=== PATIENT | male | born 1965 | race American Indian/Alaskan Native ===

== ENCOUNTER 2018-06-04 11:38 | Inpatient (IN) | payer MEDICARE ==
--- NOTE | 2018-06-04 12:23 | Emergency Department Report ---
HPI - General Time Seen by Provider: 06/04/18 12:11 - HPI HPI: 53-year-old -[place] male presents to the emergency department from [facility] for altered mental status. Patient was brought to the psychiatric facility after he contact his roommate and was beating his head on a wall. He has a past medical history listed as hypertension, diabetes, hyperlipidemia and he has some level of intellectual disability. He has a psychiatric history listed as depression, psychosis, schizoaffective disorder. Patient apparently went to the psychiatric facility from [facility] after he had gone a few days without sleep, was aggressive towards people at his facility and was hitting his head on the wall. In his inpatient evaluation at [facility], he is listed as mute, uncooperative and poorly groomed and does not follow all commands. It appears that the patient was sent in to [facility] for evaluation because he has not been eating or drinking over the past few days and is "altered." Patient is currently making sounds but nothing appears organized or is any type of identifiable language. ED Past Medical Hx - Medications Home Medications: Home Medications Medication Instructions Recorded Confirmed Last Taken Type Aspirin EC [Aspirin Enteric Coated 81 mg PO DAILY 06/04/18 06/04/18 Unknown History TAB] Ciprofloxacin HCl [Cipro] 500 mg PO BID 06/04/18 06/04/18 Unknown History Docusate Sodium [Stool Softener] 100 mg PO BID 06/04/18 06/04/18 Unknown History Fenofibrate 160 mg PO QPM 06/04/18 06/04/18 Unknown History Glimepiride [Amaryl] 10 mg PO DAILY 06/04/18 06/04/18 Unknown History Lisinopril [Zestril] 40 mg PO DAILY 06/04/18 06/04/18 Unknown History Potassium Chloride [Klor-Con] 20 meq PO DAILY 06/04/18 06/04/18 Unknown History Sertraline [Zoloft] 150 mg PO QAM 06/04/18 06/04/18 Unknown History Valproic Acid (As Sodium Salt) 500 mg PO BID 06/04/18 06/04/18 Unknown History [Depakene] amLODIPine [Norvasc] 10 mg PO DAILY 06/04/18 06/04/18 Unknown History chlorproMAZINE [Thorazine] 25 mg PO BID 06/04/18 06/04/18 Unknown History hydroCHLOROthiazide [HCTZ] 25 mg PO DAILY 06/04/18 06/04/18 Unknown History metFORMIN [Glucophage] 500 mg PO BID 06/04/18 06/04/18 Unknown History ED Review of Systems ROS: Stated complaint: EVALUATION Other details as noted in HPI Comment: Unobtainable due to pts medical conditions Physical Exam - Physical Exam Physical Exam: GENERAL: Patient is awake but confused. HENT: Normocephalic. Atraumatic. Patient has moist mucous membranes. EYES: Extraocular motions are intact. Pupils equal reactive to light bilaterally. NECK: Supple. Trachea is midline. CHEST/LUNGS: Clear to auscultation. There is no respiratory distress noted. HEART/CARDIOVASCULAR: Regular. There is no tachycardia. There is no murmur. ABDOMEN: Abdomen is soft, nontender. Patient has normal bowel sounds. There is no abdominal distention. SKIN: Skin is warm and dry. NEURO: The patient is awake. Patient follows a few commands but often is not redirectable. No obvious facial asymmetry. Patient is making sounds but they are unintelligible and unorganized. MUSCULOSKELETAL: There is no tenderness or deformity. There is no evidence of acute injury. ED Medical Decision Making - Lab Data Result diagrams: 06/04/18 12:28 06/04/18 12:28 - EKG Data -: EKG Interpreted by Ma EKG shows normal: sinus rhythm, axis, intervals, QRS complexes, ST-T waves Rate: tachycardia (105 bpm) - EKG Data When compared to previous EKG there are: previous EKG unavailable Interpretation: normal EKG (with mild tachycardia) - Radiology Data Radiology results: report reviewed EXAM: CT HEAD/BRAIN WO CON HISTORY: Altered Mental Status TECHNIQUE: CT of the head was performed without intravenous contrast. PRIORS: None. FINDINGS: The ventricles are normal in shape and position. The ventricles are nondilated. No intracranial hemorrhage, mass, mass effect, midline shift or evidence of acute ischemic infarct. The basilar cisterns are patent. The paranasal sinuses are clear. The extracranial soft tissues demonstrate no abnormality. The calvarium is intact. The orbits are intact. The mastoid air cells are clear. IMPRESSION: No acute intracranial abnormality. Transcribed By: MG Dictated By: RIGOBERTO GARCIA MD Electronically Authenticated By: RIGOBERTO GARCIA MD Signed Date/Time: 06/04/18 1742 - Medical Decision Making Patient presents from his psychiatric facility with a concern for altered mental status. Looking at the intake forms, it appears that the patient presented to them mute with some questionable weakness. However the facility nurse, who is with the patient, says that she has seen him ambulatory and sometimes responsive saying normal Iranian words. Since the patient has been in the emergency department, he is making sounds but they are unintelligible and disorganized. The patient will follow a few commands. It is unknown what is a normal mentation for this patient and when the last known well time is. CT of the head does not show any bleed, shift, mass, ischemia or any acute process. Labs show a mild leukocytosis. Mild hypernatremia but otherwise no significant electrolyte abnormalities, renal insufficiency, or glucose abnormalities. EKG did not any signs of ST elevation MO. It is possible that the patient's current condition is secondary to psychosis, but given this recent change in this patient, I cannot clear him for return to the psychiatric facility. He will be admitted medically for further evaluation and was accepted for admission by the hospitalist, Dr. Howell. - Differential Diagnosis CVA, substance abuse, psychosis Critical Care Time: No Critical care attestation.: If time is entered above; I have spent that time in minutes in the direct care of this critically ill patient, excluding procedure time. ED Disposition Clinical Impression: Hypernatremia Altered mental status Qualifiers: Altered mental status type: unspecified Qualified Code(s): R41.82 - Altered mental status, unspecified Hypertension Qualifiers: Hypertension type: essential hypertension Qualified Code(s): I10 - Essential ( primary) hypertension Disposition: -09 OP ADMIT IP TO THIS HOSP Is pt being admited?: Yes Condition: Fair Time of Disposition: 18:58 - Assessment Assessment Interval: Baseline (There is no obvious last known well time. Some of the patient's symptoms appear to wax and wane. He does not appear to be a TPA candidate. Difficult to do full NIHSS as patient has history of intellectual disability and psychosis and does not follow all commands.) - Level of Consciousness 1a. Level of Consciousness: alert/keenly responsive - LOC Questions 1b. LOC Questions: answers no questions correctly - LOC Command 1c. LOC Commands: performs 1 task correctly - Best Gaze 2. Best Gaze: normal - Visual 3. Visual: no visual loss - Facial Palsy 4. Facial Palsy: normal symmetrical movement - Motor Arm 5b. Motor Arm Right: no drift 5a. Motor Arm Left: no drift - Motor Leg 6a. Motor Leg Left: no drift 6b. Motor Leg Right: no drift - Limb Ataxia 7. Limb Ataxia: absent - Sensory 8. Sensory: normal - Best Language 9. Best Language: mild/moderate aphasia - Dysarthria 10. Dysarthria: severe dysarthria - Extinction and Inattention 11. Extinction/Inattention: no abnormality - Scoring Total Score: 6 Stroke Severity: Moderate Stroke
[2018-06-04] MEDS ORDERED: GEODON IM ONE (12:28)
[2018-06-04] MEDS ORDERED: WATER FOR INJ (PF) ONE (12:52)
[2018-06-04 12:56] LABS: Basophils % (Auto) 0.2 % (0.0-1.8); Eosinophils # (Auto) 0.1 K/mm3 (0.0-0.4); Eosinophils % (Auto) 0.5 % (0.0-4.3); Hematocrit 36.6 % (35.5-45.6); Hemoglobin 12.1 gm/dl (11.8-15.2); Lymphocytes # (Auto) 0.7 K/mm3 (1.2-5.4); Lymphocytes % (Auto) 4.7 % (13.4-35.0); Mean Corpuscular HGB Conc 33 % (32-34); Mean Corpuscular Hemoglobin 30 pg (28-32); Mean Corpuscular Volume 91 fl (84-94); Monocytes # (Auto) 0.8 K/mm3 (0.0-0.8); Monocytes % (Auto) 5.6 % (0.0-7.3); Platelet Count 552 K/mm3 (140-440); Red Blood Count 4.04 M/mm3 (3.65-5.03); Red Cell Distribution Width 15.2 % (13.2-15.2)
[2018-06-04 13:06] LABS: INR 1.09 (0.87-1.13)
[2018-06-04] MEDS ORDERED: BENADRYL IV ONE (13:08)
[2018-06-04 13:22] LABS: Alanine Aminotransferase 73 units/L (7-56); Albumin 4.2 g/dL (3.9-5); BUN/Creatinine Ratio 24; Blood Urea Nitrogen 24 mg/dL (9-20); Calcium 9.8 mg/dL (8.4-10.2); Hemolysis Index 7
[2018-06-04] MEDS ORDERED: ATIVAN IV ONE (13:31)
--- NOTE | 2018-06-04 14:41 | Cat Scan Report ---
FINAL REPORT EXAM: CT HEAD/BRAIN WO CON HISTORY: Altered Mental Status TECHNIQUE: CT of the head was performed without intravenous contrast. PRIORS: None. FINDINGS: The ventricles are normal in shape and position. The ventricles are nondilated. No intracranial hemorrhage, mass, mass effect, midline shift or evidence of acute ischemic infarct. The basilar cisterns are patent. The paranasal sinuses are clear. The extracranial soft tissues demonstrate no abnormality. The calvarium is intact. The orbits are intact. The mastoid air cells are clear. IMPRESSION: No acute intracranial abnormality.
[2018-06-04] MEDS ORDERED: KEPPRA ONE (14:58)
--- NOTE | 2018-06-04 17:07 | History and Physical Report ---
History of Present Illness Chief complaint: Confused History of present illness: 53 YO Male with HTN, DM, Depression, Schizoaffective Disorder, Psychosis, HLD who is an inpatient at [facility] presents to ED for evaluation. Pt is lethargic and unable to provide history. Pt history is provided by his sitter from [facility]. As per staff, the patient has experienced confusion, inability to follow commands, and decreased oral intake over the past 2 days with worsening symptoms over the past 1 day. No reports of fever, chills, CP, Palpitations, NVD, Trauma, vertigo, or recent ill contacts. Pt seen and evaluated in ED and found to have Sepsis, Encephalopathy, Acidosis, and Psychosis. Pt admitted to medical floor. Past History Past Medical History: diabetes, hypertension, hyperlipidemia Past Surgical History: No surgical history, Other (reviewed) Social history: single. denies: smoking, alcohol abuse, prescription drug abuse Family history: diabetes, hypertension Medications and Allergies Allergies Allergy/AdvReac Type Severity Reaction Status Date / Time lispro Allergy Unknown Uncoded 06/04/18 18:38 Home Medications Medication Instructions Recorded Confirmed Last Taken Type Aspirin EC [Aspirin Enteric Coated 81 mg PO DAILY 06/04/18 06/04/18 Unknown History TAB] Ciprofloxacin HCl [Cipro] 500 mg PO BID 06/04/18 06/04/18 Unknown History Docusate Sodium [Stool Softener] 100 mg PO BID 06/04/18 06/04/18 Unknown History Fenofibrate 160 mg PO QPM 06/04/18 06/04/18 Unknown History Glimepiride [Amaryl] 10 mg PO DAILY 06/04/18 06/04/18 Unknown History Lisinopril [Zestril] 40 mg PO DAILY 06/04/18 06/04/18 Unknown History Potassium Chloride [Klor-Con] 20 meq PO DAILY 06/04/18 06/04/18 Unknown History Sertraline [Zoloft] 150 mg PO QAM 06/04/18 06/04/18 Unknown History Valproic Acid (As Sodium Salt) 500 mg PO BID 06/04/18 06/04/18 Unknown History [Depakene] amLODIPine [Norvasc] 10 mg PO DAILY 06/04/18 06/04/18 Unknown History chlorproMAZINE [Thorazine] 25 mg PO BID 06/04/18 06/04/18 Unknown History hydroCHLOROthiazide [HCTZ] 25 mg PO DAILY 06/04/18 06/04/18 Unknown History metFORMIN [Glucophage] 500 mg PO BID 06/04/18 06/04/18 Unknown History Review of Systems ROS unobtainable: due to mental status Exam - Constitutional Vitals: Temp Pulse Resp BP Pulse Ox 98.6 F 106 H 16 166/101 100 06/04/18 12:18 06/04/18 12:18 06/04/18 12:18 06/04/18 12:18 06/04/18 12:18 General appearance: Present: mild distress - EENT Eyes: Present: PERRL ENT: hearing intact, clear oral mucosa - Neck Neck: Present: supple, normal ROM - Respiratory Respiratory effort: normal Respiratory: bilateral: CTA - Cardiovascular Heart Sounds: Present: S1 & S2. Absent: rub, click - Extremities Extremities: pulses symmetrical, No edema Peripheral Pulses: within normal limits - Abdominal General gastrointestinal: Present: soft, non-tender, non-distended, normal bowel sounds Male genitourinary: Present: normal - Integumentary Integumentary: Present: clear, dry, clammy - Musculoskeletal Musculoskeletal: generalized weakness - Psychiatric Psychiatric: no appropriate mood/affect, no intact judgment & insight, no memory intact, cooperative - Neurologic Neurologic: moves all extremities, no gait normal Results - Labs CBC & Chem 7: 06/04/18 12:28 06/05/18 04:41 Labs: Abnormal lab results 06/04/18 06/04/18 Range/Units 12:28 12:28 WBC 14.3 H (4.5-11.0) K/mm3 Plt Count 552 H (140-440) K/mm3 Lymph % (Auto) 4.7 L (13.4-35.0) % Lymph # 0.7 L (1.2-5.4) K/mm3 Seg Neutrophils % 89.0 H (40.0-70.0) % Seg Neutrophils # 12.7 H (1.8-7.7) K/mm3 Sodium 151 H (137-145) mmol/L Potassium 3.5 L (3.6-5.0) mmol/L Carbon Dioxide 21 L (22-30) mmol/L BUN 24 H (9-20) mg/dL Glucose 123 H (75-100) mg/dL AST 105 H (5-40) units/L ALT 73 H (7-56) units/L Alkaline Phosphatase 32 L (35-129) units/L Assessment and Plan - Patient Problems (1) Sepsis Current Visit: Yes Status: Acute Qualifiers: Sepsis type: sepsis due to unspecified organism Qualified Code(s): A41.9 - Sepsis, unspecified organism Plan to address problem: IV antibiotic therapy, IVF resuscitation, blood cultures, cbc, cmp, serial lactic acid level, monitor uop q shift, urinalysis, chest x ray (2) Encephalopathy Current Visit: Yes Status: Acute Plan to address problem: CT Head, neuro check, eeg, aspiration precautions, seizure precautions, treat sepsis (3) Acidosis Current Visit: Yes Status: Acute Plan to address problem: IVF resuscitation therapy,serial lactic acid level (4) Psychosis Current Visit: Yes Status: Acute Qualifiers: Psychosis type: schizoaffective disorder Plan to address problem: Mental health consulted, continue current therapy (5) DVT prophylaxis Current Visit: Yes Status: Acute Plan to address problem: SCD to BLE while in bed.
[2018-06-04] MEDS ORDERED: VANCOMYCIN 1,750 MG in NACL 0.9% 500 ML 500 ML IV ONE (17:43)
[2018-06-04] MEDS ORDERED: NACL 0.9% 1000 ML IV ONE (17:43)
[2018-06-04] MEDS ORDERED: PROVENTIL IH PRN (17:43)
[2018-06-04] MEDS ORDERED: SODIUM CHLORIDE FLUSH SYRINGE 10 ML IV PRN (17:43)
[2018-06-04] MEDS ORDERED: ZOFRAN IV PRN (17:43)
[2018-06-04] MEDS ORDERED: NON-FORMULARY (Fenofibrate [Fenofibrate] 160 MG) PO SCH (18:00)
[2018-06-04 19:14] LABS: Bacteria,Urine 1+ /HPF (Negative); Bilirubin,Urine NEG (Negative); Blood,Urine NEG (Negative); Color,Urine Yellow (Yellow); Hyaline Casts,Urine 10 /LPF; Mucus,Urine FEW /HPF
[2018-06-04 19:15] LABS: Amphetamine Screen,Urine PRESUMPTIVE NEGATIVE; Benzodiazepines Screen,Urine PRESUMPTIVE NEGATIVE; Cannabinoid Screen,Urine PRESUMPTIVE NEGATIVE; Cocaine Screen,Urine PRESUMPTIVE NEGATIVE; Methadone Screen,Urine PRESUMPTIVE NEGATIVE; Opiate Screen,Urine PRESUMPTIVE NEGATIVE
[2018-06-04] MEDS ORDERED: NACL 0.9% 1000 ML 1,000 ML ONE (21:17)
[2018-06-04] MEDS ORDERED: VALPROIC ACID 500 MG PO SCH (22:00)
[2018-06-04] MEDS: SODIUM CHLORIDE FLUSH SYRINGE 10 ML IV SCH (23:04)
[2018-06-04] MEDS: ZOSYN/NS 4.5GM/100ML 4.5 GM/100 ML VIAL IV SCH (23:04)
[2018-06-04] MEDS: COLACE PO SCH (23:05)
[2018-06-05] MEDS: THORAZINE PO SCH ×4 (01:10→22:00)
[2018-06-05 05:35] LABS: BUN/Creatinine Ratio 21; Blood Urea Nitrogen 21 mg/dL (9-20); Calcium 8.9 mg/dL (8.4-10.2); Hemolysis Index 1
[2018-06-05] MEDS: ZOSYN/NS 4.5GM/100ML 4.5 GM/100 ML VIAL IV SCH ×3 (06:11→22:56)
[2018-06-05] MEDS ORDERED: ATIVAN IV ONE (06:31)
--- NOTE | 2018-06-05 12:43 | Progress Note ---
Assessment and Plan Assessment and plan: Sepsis. Continue IV antibiotics. Follow-up blood cultures, CBC, serum lactic acid levels and chest x-ray. Toxic metabolic encephalopathy. Neurology consultation pending. CT scan of head negative. Follow-up neurochecks, EEG. Continue to treat underlying causes. Hypernatremia. Etiology likely secondary to volume depletion. Hypertension. Continue to attempt his medications. Psychosis/schizoaffective disorder. Mental health evaluation. History Interval history: No new issues overnight. Hospitalist Physical - Constitutional Vitals: Temp Pulse Resp BP Pulse Ox 98.3 F 104 H 16 168/98 97 06/05/18 10:58 06/05/18 10:58 06/05/18 10:58 06/05/18 10:58 06/05/18 10:58 General appearance: Present: mild distress - EENT Eyes: Present: PERRL, EOM intact ENT: hearing intact, clear oral mucosa, dentition normal - Neck Neck: Present: supple, normal ROM - Respiratory Respiratory effort: normal Respiratory: bilateral: CTA - Cardiovascular Rhythm: regular Heart Sounds: Present: S1 & S2. Absent: gallop, rub - Extremities Extremities: no ischemia, No edema, Full ROM - Abdominal General gastrointestinal: soft, non-tender, non-distended, normal bowel sounds - Integumentary Integumentary: Present: clear, warm, dry - Neurologic Neurologic: CNII-XII intact, moves all extremities Results - Labs CBC & Chem 7: 06/04/18 12:28 06/05/18 04:41 Labs: Laboratory Last Values WBC 14.3 K/mm3 (4.5-11.0) H 06/04/18 12:28 RBC 4.04 M/mm3 (3.65-5.03) 06/04/18 12:28 Hgb 12.1 gm/dl (11.8-15.2) 06/04/18 12:28 Hct 36.6 % (35.5-45.6) 06/04/18 12:28 MCV 91 fl (84-94) 06/04/18 12:28 MCH 30 pg (28-32) 06/04/18 12:28 MCHC 33 % (32-34) 06/04/18 12:28 RDW 15.2 % (13.2-15.2) 06/04/18 12:28 Plt Count 552 K/mm3 (140-440) H 06/04/18 12:28 Lymph % (Auto) 4.7 % (13.4-35.0) L 06/04/18 12:28 [place] % (Auto) 5.6 % (0.0-7.3) 06/04/18 12:28 Eos % (Auto) 0.5 % (0.0-4.3) 06/04/18 12:28 Baso % (Auto) 0.2 % (0.0-1.8) 06/04/18 12:28 Lymph # 0.7 K/mm3 (1.2-5.4) L 06/04/18 12:28 [place] # 0.8 K/mm3 (0.0-0.8) 06/04/18 12:28 Eos # 0.1 K/mm3 (0.0-0.4) 06/04/18 12:28 Baso # 0.0 K/mm3 (0.0-0.1) 06/04/18 12:28 Seg Neutrophils % 89.0 % (40.0-70.0) H 06/04/18 12:28 Seg Neutrophils # 12.7 K/mm3 (1.8-7.7) H 06/04/18 12:28 PT 14.7 Sec. (12.2-14.9) 06/04/18 12:28 INR 1.09 (0.87-1.13) 06/04/18 12:28 APTT 29.0 Sec. (24.2-36.6) 06/04/18 12:28 Sodium 155 mmol/L (137-145) H 06/05/18 04:41 Potassium 3.8 mmol/L (3.6-5.0) 06/05/18 04:41 Chloride 114.9 mmol/L (98-107) H 06/05/18 04:41 Carbon Dioxide 27 mmol/L (22-30) 06/05/18 04:41 Anion Gap 17 mmol/L 06/05/18 04:41 BUN 21 mg/dL (9-20) H 06/05/18 04:41 Creatinine 1.0 mg/dL (0.8-1.5) 06/05/18 04:41 Estimated GFR > 60 ml/min 06/05/18 04:41 BUN/Creatinine Ratio 21 % 06/05/18 04:41 Glucose 118 mg/dL (75-100) H 06/05/18 04:41 Lactic Acid 1.40 mmol/L (0.7-2.0) 06/04/18 23:18 Calcium 8.9 mg/dL (8.4-10.2) 06/05/18 04:41 Total Bilirubin 0.40 mg/dL (0.1-1.2) 06/04/18 12:28 AST 105 units/L (5-40) H 06/04/18 12:28 ALT 73 units/L (7-56) H 06/04/18 12:28 Alkaline Phosphatase 32 units/L (35-129) L 06/04/18 12:28 Ammonia 58.0 umol/L (25-60) 06/04/18 12:28 Troponin T < 0.010 ng/mL (0.00-0.029) 06/04/18 12:28 Total Protein 7.7 g/dL (6.3-8.2) 06/04/18 12:28 Albumin 4.2 g/dL (3.9-5) 06/04/18 12:28 Albumin/Globulin Ratio 1.2 % 06/04/18 12:28 TSH 0.794 mlU/mL (0.270-4.200) 06/04/18 12:28 Urine Color Yellow (Yellow) 06/04/18 18:41 Urine Turbidity Slightly-cloudy (Clear) 06/04/18 18:41 Urine pH 5.0 (5.0-7.0) 06/04/18 18:41 Ur Specific [place] 1.027 (1.003-1.030) 06/04/18 18:41 Urine Protein 100 mg/dl mg/dL (Negative) 06/04/18 18:41 Urine Glucose (UA) Neg mg/dL (Negative) 06/04/18 18:41 Urine Ketones 20 mg/dL (Negative) 06/04/18 18:41 Urine Blood Neg (Negative) 06/04/18 18:41 Urine Nitrite Neg (Negative) 06/04/18 18:41 Urine Bilirubin Neg (Negative) 06/04/18 18:41 Urine Urobilinogen 2.0 mg/dL (<2.0) 06/04/18 18:41 Ur Leukocyte Esterase Neg (Negative) 06/04/18 18:41 Urine WBC (Auto) 3.0 /HPF (0.0-6.0) 06/04/18 18:41 Urine RBC (Auto) 3.0 /HPF (0.0-6.0) 06/04/18 18:41 Urine Bacteria (Auto) 1+ /HPF (Negative) 06/04/18 18:41 Hyaline Casts 10 /LPF 06/04/18 18:41 Urine Mucus Few /HPF 06/04/18 18:41 Urine Opiates Screen Presumptive negative 06/04/18 18:41 Urine Methadone Screen Presumptive negative 06/04/18 18:41 Ur Barbiturates Screen Presumptive negative 06/04/18 18:41 Ur Phencyclidine Scrn Presumptive negative 06/04/18 18:41 Ur Amphetamines Screen Presumptive negative 06/04/18 18:41 U Benzodiazepines Scrn Presumptive negative 06/04/18 18:41 Urine Cocaine Screen Presumptive negative 06/04/18 18:41 U Marijuana (THC) Screen Presumptive negative 06/04/18 18:41 Drugs of Abuse Note Disclamer 06/04/18 18:41 Plasma/Serum Alcohol < 0.01 % (0-0.07) 06/04/18 12:28
[2018-06-05] MEDS ORDERED: D5/0.45NS 1,000 ML IV SCH (13:00)
[2018-06-05] MEDS: COLACE PO SCH ×2 (13:39→22:00)
[2018-06-05] MEDS: NORVASC PO SCH ×2 (13:40→17:12)
[2018-06-05] MEDS: HCTZ PO SCH ×2 (13:41→17:12)
[2018-06-05] MEDS: ZOLOFT PO SCH ×2 (13:41→17:12)
[2018-06-05] MEDS: ZESTRIL PO SCH ×2 (13:41→17:12)
[2018-06-05] MEDS: TRICOR PO SCH ×2 (13:41→17:12)
[2018-06-05] MEDS: HALFPRIN EC PO SCH ×2 (13:41→17:11)
[2018-06-05] MEDS: SODIUM CHLORIDE FLUSH SYRINGE 10 ML IV SCH ×2 (13:42→22:57)
[2018-06-05] MEDS: POTASSIUM CHLORIDE PO SCH ×2 (13:42→17:12)
--- NOTE | 2018-06-05 17:35 | XRay Report ---
FINAL REPORT PROCEDURE: XR CHEST 1V AP TECHNIQUE: Chest radiograph portable anteroposterior view. CPT 07095 HISTORY: Sepsis COMPARISON: No prior studies are available for comparison. FINDINGS: Heart: Normal size. Mediastinum/Vessels: Normal. Lungs/Pleural space: Clear. Bony thorax: No acute osseous abnormality. Life support devices: None. IMPRESSION: No acute cardiopulmonary abnormality.
--- NOTE | 2018-06-05 17:41 | Electroencephalogram Report ---
Electroencephalogram EEG Date of exam: 06/05/18 Description: Preliminary findings: There is 12 Hz alpha activity in the posterior leads and some anterior beta activity. EMG artifact is prominent at times. With drowsiness and early sleep, sleep spindles appear and later K complexes. No epileptiform activity was seen. Interpretation: Preliminary reading: Normal waking and sleep electroencephalogram. This EEG does not exclude epilepsy of partial onset. Up to 4 EEGs over several months may be needed to capture interictal epileptiform activity.
[2018-06-05] MEDS: HALDOL IM PRN (19:04)
[2018-06-06] MEDS: HALDOL IM PRN ×4 (01:56→23:59)
[2018-06-06 06:04] LABS: Basophils % (Auto) 0.5 % (0.0-1.8); Eosinophils # (Auto) 0.1 K/mm3 (0.0-0.4); Eosinophils % (Auto) 1.1 % (0.0-4.3); Hematocrit 35.2 % (35.5-45.6); Hemoglobin 11.6 gm/dl (11.8-15.2); Lymphocytes # (Auto) 1.1 K/mm3 (1.2-5.4); Lymphocytes % (Auto) 12.2 % (13.4-35.0); Mean Corpuscular HGB Conc 33 % (32-34); Mean Corpuscular Hemoglobin 30 pg (28-32); Mean Corpuscular Volume 91 fl (84-94); Monocytes % (Auto) 10.6 % (0.0-7.3); Platelet Count 520 K/mm3 (140-440); Red Blood Count 3.88 M/mm3 (3.65-5.03); Red Cell Distribution Width 14.8 % (13.2-15.2)
[2018-06-06 06:13] LABS: BUN/Creatinine Ratio 19; Blood Urea Nitrogen 19 mg/dL (9-20); Calcium 8.9 mg/dL (8.4-10.2); Hemolysis Index 0
[2018-06-06] MEDS: ZOSYN/NS 4.5GM/100ML 4.5 GM/100 ML VIAL IV SCH ×3 (06:35→23:47)
--- NOTE | 2018-06-06 10:16 | Progress Note ---
Assessment and Plan Assessment and plan: Sepsis. Continue IV antibiotics. Follow-up blood cultures, CBC, serum lactic acid levels and chest x-ray. Toxic metabolic encephalopathy. Neurology consultation pending. CT scan of head negative. Follow-up neurochecks, EEG. Continue to treat underlying causes. Hypernatremia. Etiology likely secondary to volume depletion. Hypertension. Continue to attempt his medications. Psychosis/schizoaffective disorder. Mental health evaluation. History Interval history: No new issues overnight. Hospitalist Physical - Constitutional Vitals: Temp Pulse Resp BP Pulse Ox 98.6 F 111 H 20 176/108 100 06/06/18 00:28 06/06/18 07:47 06/06/18 07:47 06/06/18 07:47 06/06/18 00:28 General appearance: Present: mild distress - EENT Eyes: Present: PERRL, EOM intact ENT: hearing intact, clear oral mucosa, dentition normal - Neck Neck: Present: supple, normal ROM - Respiratory Respiratory effort: normal Respiratory: bilateral: CTA - Cardiovascular Rhythm: regular Heart Sounds: Present: S1 & S2. Absent: gallop, rub - Extremities Extremities: no ischemia, No edema, Full ROM - Abdominal General gastrointestinal: soft, non-tender, non-distended, normal bowel sounds - Integumentary Integumentary: Present: clear, warm, dry - Neurologic Neurologic: CNII-XII intact, moves all extremities Results - Labs CBC & Chem 7: 06/06/18 05:09 06/06/18 05:09 Labs: Laboratory Last Values WBC 9.4 K/mm3 (4.5-11.0) 06/06/18 05:09 RBC 3.88 M/mm3 (3.65-5.03) 06/06/18 05:09 Hgb 11.6 gm/dl (11.8-15.2) L 06/06/18 05:09 Hct 35.2 % (35.5-45.6) L 06/06/18 05:09 MCV 91 fl (84-94) 06/06/18 05:09 MCH 30 pg (28-32) 06/06/18 05:09 MCHC 33 % (32-34) 06/06/18 05:09 RDW 14.8 % (13.2-15.2) 06/06/18 05:09 Plt Count 520 K/mm3 (140-440) H 06/06/18 05:09 Lymph % (Auto) 12.2 % (13.4-35.0) L 06/06/18 05:09 [place] % (Auto) 10.6 % (0.0-7.3) H 06/06/18 05:09 Eos % (Auto) 1.1 % (0.0-4.3) 06/06/18 05:09 Baso % (Auto) 0.5 % (0.0-1.8) 06/06/18 05:09 Lymph # 1.1 K/mm3 (1.2-5.4) L 06/06/18 05:09 [place] # 1.0 K/mm3 (0.0-0.8) H 06/06/18 05:09 Eos # 0.1 K/mm3 (0.0-0.4) 06/06/18 05:09 Baso # 0.0 K/mm3 (0.0-0.1) 06/06/18 05:09 Seg Neutrophils % 75.6 % (40.0-70.0) H 06/06/18 05:09 Seg Neutrophils # 7.1 K/mm3 (1.8-7.7) 06/06/18 05:09 PT 14.7 Sec. (12.2-14.9) 06/04/18 12:28 INR 1.09 (0.87-1.13) 06/04/18 12:28 APTT 29.0 Sec. (24.2-36.6) 06/04/18 12:28 Sodium 156 mmol/L (137-145) H 06/06/18 05:09 Potassium 3.2 mmol/L (3.6-5.0) L 06/06/18 05:09 Chloride 116.0 mmol/L (98-107) H 06/06/18 05:09 Carbon Dioxide 27 mmol/L (22-30) 06/06/18 05:09 Anion Gap 16 mmol/L 06/06/18 05:09 BUN 19 mg/dL (9-20) 06/06/18 05:09 Creatinine 1.0 mg/dL (0.8-1.5) 06/06/18 05:09 Estimated GFR > 60 ml/min 06/06/18 05:09 BUN/Creatinine Ratio 19 % 06/06/18 05:09 Glucose 121 mg/dL (75-100) H 06/06/18 05:09 Lactic Acid 1.40 mmol/L (0.7-2.0) 06/04/18 23:18 Calcium 8.9 mg/dL (8.4-10.2) 06/06/18 05:09 Total Bilirubin 0.40 mg/dL (0.1-1.2) 06/04/18 12:28 AST 105 units/L (5-40) H 06/04/18 12:28 ALT 73 units/L (7-56) H 06/04/18 12:28 Alkaline Phosphatase 32 units/L (35-129) L 06/04/18 12:28 Ammonia 58.0 umol/L (25-60) 06/04/18 12:28 Troponin T < 0.010 ng/mL (0.00-0.029) 06/04/18 12:28 Total Protein 7.7 g/dL (6.3-8.2) 06/04/18 12:28 Albumin 4.2 g/dL (3.9-5) 06/04/18 12:28 Albumin/Globulin Ratio 1.2 % 06/04/18 12:28 TSH 0.794 mlU/mL (0.270-4.200) 06/04/18 12:28 Urine Color Yellow (Yellow) 06/04/18 18:41 Urine Turbidity Slightly-cloudy (Clear) 06/04/18 18:41 Urine pH 5.0 (5.0-7.0) 06/04/18 18:41 Ur Specific [place] 1.027 (1.003-1.030) 06/04/18 18:41 Urine Protein 100 mg/dl mg/dL (Negative) 06/04/18 18:41 Urine Glucose (UA) Neg mg/dL (Negative) 06/04/18 18:41 Urine Ketones 20 mg/dL (Negative) 06/04/18 18:41 Urine Blood Neg (Negative) 06/04/18 18:41 Urine Nitrite Neg (Negative) 06/04/18 18:41 Urine Bilirubin Neg (Negative) 06/04/18 18:41 Urine Urobilinogen 2.0 mg/dL (<2.0) 06/04/18 18:41 Ur Leukocyte Esterase Neg (Negative) 06/04/18 18:41 Urine WBC (Auto) 3.0 /HPF (0.0-6.0) 06/04/18 18:41 Urine RBC (Auto) 3.0 /HPF (0.0-6.0) 06/04/18 18:41 Urine Bacteria (Auto) 1+ /HPF (Negative) 06/04/18 18:41 Hyaline Casts 10 /LPF 06/04/18 18:41 Urine Mucus Few /HPF 06/04/18 18:41 Urine Opiates Screen Presumptive negative 06/04/18 18:41 Urine Methadone Screen Presumptive negative 06/04/18 18:41 Ur Barbiturates Screen Presumptive negative 06/04/18 18:41 Valproic Acid < 2.8 ug/mL (50-100) L 06/05/18 14:05 Ur Phencyclidine Scrn Presumptive negative 06/04/18 18:41 Ur Amphetamines Screen Presumptive negative 06/04/18 18:41 U Benzodiazepines Scrn Presumptive negative 06/04/18 18:41 Urine Cocaine Screen Presumptive negative 06/04/18 18:41 U Marijuana (THC) Screen Presumptive negative 06/04/18 18:41 Drugs of Abuse Note Disclamer 06/04/18 18:41 Plasma/Serum Alcohol < 0.01 % (0-0.07) 06/04/18 12:28
[2018-06-06] MEDS: APRESOLINE IV PRN ×2 (10:47→23:55)
[2018-06-06] MEDS: ZESTRIL PO SCH (10:47)
[2018-06-06] MEDS: TRICOR PO SCH (10:48)
[2018-06-06] MEDS: THORAZINE PO SCH ×2 (10:48→21:47)
[2018-06-06] MEDS: POTASSIUM CHLORIDE PO SCH (10:48)
[2018-06-06] MEDS: ZOLOFT PO SCH (10:48)
[2018-06-06] MEDS: NORVASC PO SCH (10:49)
[2018-06-06] MEDS: HCTZ PO SCH (10:49)
[2018-06-06] MEDS: COLACE PO SCH ×2 (10:49→21:47)
[2018-06-06] MEDS: HALFPRIN EC PO SCH (10:49)
[2018-06-06] MEDS: SODIUM CHLORIDE FLUSH SYRINGE 10 ML IV SCH ×2 (10:50→22:00)
--- NOTE | 2018-06-06 11:40 | Consultation ---
History of Present Illness - Reason for Consult Reason for consult: disorganized - History of Present Psychiatric Illness This is a 53-year-old male with history of hypertension diabetes as well as schizo affective disorder now presenting secondary to persistent confusion. Patient was recently an [facility] and transferred to ER for the evaluation of status changes. On examination, patient was found to be septic and currently presenting with hypernatremia. Currently it appears that neurology is on consult to further evaluate for toxic metabolic encephalopathy. On my examination, patient appeared very confused and was on 4. restraints. Patient was unable to provide any meaningful information. I did speak with his sister who was at bedside. Sister noted that the patient had been fairly organized and had discontinued recent medication which she was unable to recall. Consequent to that patient became fairly disorganized and was recently admitted to [facility]. While at [facility], and appears patient was found to be confusing transfer to the ER for further assessment. On mental status examination this is a well-developed well nourished middle- aged male in 4. restraints dressed in hospital gown with delirious presentation and persistent motor agitation. Remainder of mental status examination unable to be completed secondary to impaired sensorium. ADLs are currently on not independent and the patient requires supportive services to complete them. Assessment: Schizoaffective disorder Mental status changes secondary to sepsis/hypernatremia and other undetermined etiologies Recommendations: 1. Frequently reorient patient and involve him/her in their care (simple explanations of procedures, tests, medications). 2. Lights on and shades open during daytime hours. 3. Write date and goals of care in a visible place. 4. Try to avoid unnecessary interruptions to sleep during nighttime hours. 5. Obtain glasses, hearing aids from home if patient uses these at baseline. 6. Avoid medications that may exacerbate delirium (especially narcotics, benzodiazepines, barbiturates, ambien, lunesta, and medications with excessive anticholinergic properties). 7. Use haloperidol 2 mg po/im/iv prn q4-6 hours for physical agitation/ aggression Medications and Allergies Allergies Allergy/AdvReac Type Severity Reaction Status Date / Time lispro Allergy Unknown Uncoded 06/04/18 18:38 Home Medications Medication Instructions Recorded Confirmed Last Taken Type Aspirin EC [Aspirin Enteric Coated 81 mg PO DAILY 06/04/18 06/04/18 Unknown History TAB] Ciprofloxacin HCl [Cipro] 500 mg PO BID 06/04/18 06/04/18 Unknown History Docusate Sodium [Stool Softener] 100 mg PO BID 06/04/18 06/04/18 Unknown History Fenofibrate 160 mg PO QPM 06/04/18 06/04/18 Unknown History Glimepiride [Amaryl] 10 mg PO DAILY 06/04/18 06/04/18 Unknown History Lisinopril [Zestril] 40 mg PO DAILY 06/04/18 06/04/18 Unknown History Potassium Chloride [Klor-Con] 20 meq PO DAILY 06/04/18 06/04/18 Unknown History Sertraline [Zoloft] 150 mg PO QAM 06/04/18 06/04/18 Unknown History Valproic Acid (As Sodium Salt) 500 mg PO BID 06/04/18 06/04/18 Unknown History [Depakene] amLODIPine [Norvasc] 10 mg PO DAILY 06/04/18 06/04/18 Unknown History chlorproMAZINE [Thorazine] 25 mg PO BID 06/04/18 06/04/18 Unknown History hydroCHLOROthiazide [HCTZ] 25 mg PO DAILY 06/04/18 06/04/18 Unknown History metFORMIN [Glucophage] 500 mg PO BID 06/04/18 06/04/18 Unknown History Active Meds: Active Medications Acetaminophen (Tylenol) 650 mg PO Q4H PRN PRN Reason: Pain MILD(1-3)/Fever >100.5/[place] Albuterol (Proventil) 2.5 mg IH Q4HRT PRN PRN Reason: Shortness Of Breath Amlodipine Besylate (Norvasc) 10 mg PO DAILY [facility] Last Admin: 06/06/18 10:49 Dose: Not Given Aspirin (Halfprin Ec) 81 mg PO DAILY [facility] Last Admin: 06/06/18 10:49 Dose: Not Given Chlorpromazine HCl (Thorazine) 25 mg PO BID [facility] Last Admin: 06/06/18 10:48 Dose: Not Given Docusate Sodium (Colace) 100 mg PO BID [facility] Last Admin: 06/06/18 10:49 Dose: Not Given Fenofibrate (Tricor) 145 mg PO DAILY [facility] Last Admin: 06/06/18 10:48 Dose: Not Given Haloperidol Lactate (Haldol) 5 mg IM Q6H PRN PRN Reason: Agitation Last Admin: 06/06/18 10:02 Dose: 5 mg Hydralazine HCl (Apresoline) 20 mg IV Q4HR PRN PRN Reason: Blood Pressure Last Admin: 06/06/18 10:47 Dose: 20 mg Hydrochlorothiazide (Hctz) 25 mg PO DAILY [facility] Last Admin: 06/06/18 10:49 Dose: Not Given Piperacillin Sod/Tazobactam Sod (Zosyn/Ns 4.5gm/100ml) 4.5 gm in 100 mls @ 200 mls/hr IV Q8HR [facility]; Protocol Last Admin: 06/06/18 06:35 Dose: 200 mls/hr Dextrose/Sodium Chloride (D5/0.45ns) 1,000 mls @ 75 mls/hr IV DIRECT [facility] Last Admin: 06/05/18 14:44 Dose: 75 mls/hr Lisinopril (Zestril) 40 mg PO DAILY [facility] Last Admin: 06/06/18 10:47 Dose: Not Given Ondansetron HCl (Zofran) 4 mg IV Q8H PRN PRN Reason: Nausea And Vomiting Potassium Chloride (Potassium Chloride) 20 meq PO DAILY [facility] Last Admin: 06/06/18 10:48 Dose: Not Given Sertraline HCl (Zoloft) 150 mg PO QAM [facility] Last Admin: 06/06/18 10:48 Dose: Not Given Sodium Chloride (Sodium Chloride Flush Syringe 10 Ml) 10 ml IV BID [facility] Last Admin: 06/06/18 10:50 Dose: 10 ml Sodium Chloride (Sodium Chloride Flush Syringe 10 Ml) 10 ml IV PRN PRN PRN Reason: LINE FLUSH Valproic Acid (Depakene) 500 mg PO BID [facility] Last Admin: 06/06/18 10:49 Dose: Not Given Mental Status Exam - Vital signs Last Vital Signs Temp 98.6 F 06/06/18 00:28 Pulse 100 H 06/06/18 10:47 Resp 20 06/06/18 07:47 BP 177/110 06/06/18 10:47 Pulse Ox 100 06/06/18 00:28 Results Result Diagrams: 06/06/18 05:09 06/06/18 05:09 Abnormal lab results 06/05/18 06/06/18 06/06/18 Range/Units 14:05 05:09 05:09 Hgb 11.6 L (11.8-15.2) gm/dl Hct 35.2 L (35.5-45.6) % Plt Count 520 H (140-440) K/mm3 Lymph % (Auto) 12.2 L (13.4-35.0) % [place] % (Auto) 10.6 H (0.0-7.3) % Lymph # 1.1 L (1.2-5.4) K/mm3 [place] # 1.0 H (0.0-0.8) K/mm3 Seg Neutrophils % 75.6 H (40.0-70.0) % Sodium 156 H (137-145) mmol/L Potassium 3.2 L (3.6-5.0) mmol/L Chloride 116.0 H (98-107) mmol/L Glucose 121 H (75-100) mg/dL Valproic Acid < 2.8 L (50-100) ug/mL All other labs normal.
--- NOTE | 2018-06-06 12:30 | Consultation ---
History of Present Illness - Reason for Consult Consult date: 06/06/18 hypernatremia, hypokalemia Requesting physician: DAVID YAÑEZ - History of Present Illness 53 YO Male with HTN, DM, Depression, Schizoaffective Disorder, Psychosis, HLD who is an inpatient at [facility] presents to ED for evaluation. Pt is lethargic and unable to provide history. Pt history is provided by his sitter from [facility]. As per staff, the patient has experienced confusion, inability to follow commands, and decreased oral intake over the past 2 days with worsening symptoms over the past 1 day. No reports of fever, chills, CP, Palpitations, NVD, Trauma, vertigo, or recent ill contacts. Pt seen and evaluated in ED and found to have Sepsis, Encephalopathy, Acidosis, and Psychosis. Pt admitted to medical floor. Past History Past Medical History: diabetes, hypertension, hyperlipidemia Past Surgical History: No surgical history, Other (reviewed) Social history: single. denies: smoking, alcohol abuse, prescription drug abuse Family history: diabetes, hypertension Review of Systems ROS unobtainable: due to mental status Past History Past Medical History: diabetes, hypertension, hyperlipidemia Past Surgical History: No surgical history, Other (reviewed) Social history: single. denies: smoking, alcohol abuse, prescription drug abuse Family history: diabetes, hypertension Medications and Allergies Allergies Allergy/AdvReac Type Severity Reaction Status Date / Time lispro Allergy Unknown Uncoded 06/04/18 18:38 Home Medications Medication Instructions Recorded Confirmed Last Taken Type Aspirin EC [Aspirin Enteric Coated 81 mg PO DAILY 06/04/18 06/04/18 Unknown History TAB] Ciprofloxacin HCl [Cipro] 500 mg PO BID 06/04/18 06/04/18 Unknown History Docusate Sodium [Stool Softener] 100 mg PO BID 06/04/18 06/04/18 Unknown History Fenofibrate 160 mg PO QPM 06/04/18 06/04/18 Unknown History Glimepiride [Amaryl] 10 mg PO DAILY 06/04/18 06/04/18 Unknown History Lisinopril [Zestril] 40 mg PO DAILY 06/04/18 06/04/18 Unknown History Potassium Chloride [Klor-Con] 20 meq PO DAILY 06/04/18 06/04/18 Unknown History Sertraline [Zoloft] 150 mg PO QAM 06/04/18 06/04/18 Unknown History Valproic Acid (As Sodium Salt) 500 mg PO BID 06/04/18 06/04/18 Unknown History [Depakene] amLODIPine [Norvasc] 10 mg PO DAILY 06/04/18 06/04/18 Unknown History chlorproMAZINE [Thorazine] 25 mg PO BID 06/04/18 06/04/18 Unknown History hydroCHLOROthiazide [HCTZ] 25 mg PO DAILY 06/04/18 06/04/18 Unknown History metFORMIN [Glucophage] 500 mg PO BID 06/04/18 06/04/18 Unknown History Active Meds: Active Medications Acetaminophen (Tylenol) 650 mg PO Q4H PRN PRN Reason: Pain MILD(1-3)/Fever >100.5/[place] Albuterol (Proventil) 2.5 mg IH Q4HRT PRN PRN Reason: Shortness Of Breath Amlodipine Besylate (Norvasc) 10 mg PO DAILY [facility] Last Admin: 06/06/18 10:49 Dose: Not Given Aspirin (Halfprin Ec) 81 mg PO DAILY [facility] Last Admin: 06/06/18 10:49 Dose: Not Given Chlorpromazine HCl (Thorazine) 25 mg PO BID [facility] Last Admin: 06/06/18 10:48 Dose: Not Given Docusate Sodium (Colace) 100 mg PO BID [facility] Last Admin: 06/06/18 10:49 Dose: Not Given Fenofibrate (Tricor) 145 mg PO DAILY [facility] Last Admin: 06/06/18 10:48 Dose: Not Given Haloperidol Lactate (Haldol) 5 mg IM Q6H PRN PRN Reason: Agitation Last Admin: 06/06/18 10:02 Dose: 5 mg Hydralazine HCl (Apresoline) 20 mg IV Q4HR PRN PRN Reason: Blood Pressure Last Admin: 06/06/18 10:47 Dose: 20 mg Piperacillin Sod/Tazobactam Sod (Zosyn/Ns 4.5gm/100ml) 4.5 gm in 100 mls @ 200 mls/hr IV Q8HR [facility]; Protocol Last Admin: 06/06/18 06:35 Dose: 200 mls/hr Valproate Sodium 1,500 mg/ (Sodium Chloride) 115 mls @ 100 mls/hr IV ONCE ONE Stop: 06/06/18 13:38 Valproate Sodium 750 mg/ (Sodium Chloride) 107.5 mls @ 100 mls/hr IV Q8HR [facility] Potassium Chloride 20 meq/ (Dextrose) 1,010 mls @ 125 mls/hr IV DIRECT [facility] Lisinopril (Zestril) 40 mg PO DAILY [facility] Last Admin: 06/06/18 10:47 Dose: Not Given Ondansetron HCl (Zofran) 4 mg IV Q8H PRN PRN Reason: Nausea And Vomiting Potassium Chloride (Potassium Chloride) 20 meq PO DAILY [facility] Last Admin: 06/06/18 10:48 Dose: Not Given Sertraline HCl (Zoloft) 150 mg PO QAM [facility] Last Admin: 06/06/18 10:48 Dose: Not Given Sodium Chloride (Sodium Chloride Flush Syringe 10 Ml) 10 ml IV BID [facility] Last Admin: 06/06/18 10:50 Dose: 10 ml Sodium Chloride (Sodium Chloride Flush Syringe 10 Ml) 10 ml IV PRN PRN PRN Reason: LINE FLUSH Exam - Vital Signs Vital signs: Vital Signs Temp Pulse Resp BP Pulse Ox 98.6 F 106 H 16 166/101 100 06/04/18 12:18 06/04/18 12:18 06/04/18 12:18 06/04/18 12:18 06/04/18 12:18 - Physical Exam Narrative exam: General appearance: Present: mild distress - EENT Eyes: Present: PERRL ENT: hearing intact, clear oral mucosa - Neck Neck: Present: supple, normal ROM - Respiratory Respiratory effort: normal Respiratory: bilateral: CTA - Cardiovascular Heart Sounds: Present: S1 & S2. Absent: rub, click - Extremities Extremities: pulses symmetrical, No edema Peripheral Pulses: within normal limits - Abdominal General gastrointestinal: Present: soft, non-tender, non-distended, normal bowel sounds Male genitourinary: Present: normal - Integumentary Integumentary: Present: clear, dry, clammy - Musculoskeletal Musculoskeletal: generalized weakness - Psychiatric Psychiatric: no appropriate mood/affect, no intact judgment & insight, no memory intact, cooperative - Neurologic Neurologic: moves all extremities, no gait normal Results - Lab Results 06/06/18 05:09 06/06/18 05:09 Most recent lab results Calcium 8.9 mg/dL (8.4-10.2) 06/06/18 05:09 Assessment and Plan Impression: * Hypernatremia * dehydration * Schizoaffective disorder * AMS Plan: * D5w with kcl * daily lytes * strict i/os * increase free H20 intake * follow up urine lytes and UA * stop HCTZ
[2018-06-06] MEDS: KCL 20 MEQ in D5W 1,000 ML IV SCH ×2 (13:18→14:40)
[2018-06-06 13:42] LABS: Bilirubin,Urine NEG (Negative); Blood,Urine NEG (Negative); Color,Urine Yellow (Yellow); Protein,Urine <15 mg/dL mg/dL (Negative)
[2018-06-06 14:00] LABS: Creatinine,Urine 144.6 mg/dL (0.1-20.0)
[2018-06-06] MEDS ORDERED: DEPACON IV ONE (14:00)
[2018-06-06] MEDS ORDERED: NACL 0.9% IV ONE (14:00)
--- NOTE | 2018-06-06 14:46 | Electroencephalogram Report ---
Electroencephalogram EEG Date of exam: 06/06/18 Description: Preliminary findings: two records reviewed since one stopped on its own. Tachycardia on EKG channel, no alpha activity. Low voltage when visible but much of record obscured by movement despite Haldol. At times FIRDA (frontal intermittent rhythmic delta activity) is seen. Interpretation: Preliminary reading: abnormal but noisy EEG due to FIRDA indicating metabolic dysfunction or midline lesion. Correlation with imaging is advised. Repeat EEG depending on clinical course, after sufficient sedation. This EEG does not exclude epilepsy of partial onset.
[2018-06-06] MEDS ORDERED: HALDOL DECANOATE IM ONE (16:24)
--- NOTE | 2018-06-06 16:33 | Consultation ---
History of Present Illness Consult date: 06/06/18 Requesting physician: KARIS SHIELDS Reason for Consult: altered mental status Chief complaint: altered mental status History of present illness: This 53-year-old -[place] male cannot give a history. Per Dr. Howell: "As per staff, the patient has experienced confusion, inability to follow commands, and decreased oral intake over the past 2 days with worsening symptoms over the past 1 day." When asked he denies any history of stroke. Past History Past Medical History: diabetes, hypertension, hyperlipidemia. denies: stroke Past Surgical History: No surgical history, Other (reviewed) Social history: single. denies: smoking, alcohol abuse, prescription drug abuse Family history: diabetes, hypertension. denies: stroke (says no but may be unreliable.) Medications and Allergies Allergies Allergy/AdvReac Type Severity Reaction Status Date / Time lispro Allergy Unknown Uncoded 06/04/18 18:38 Home Medications Medication Instructions Recorded Confirmed Last Taken Type Aspirin EC [Aspirin Enteric Coated 81 mg PO DAILY 06/04/18 06/04/18 Unknown History TAB] Ciprofloxacin HCl [Cipro] 500 mg PO BID 06/04/18 06/04/18 Unknown History Docusate Sodium [Stool Softener] 100 mg PO BID 06/04/18 06/04/18 Unknown History Fenofibrate 160 mg PO QPM 06/04/18 06/04/18 Unknown History Glimepiride [Amaryl] 10 mg PO DAILY 06/04/18 06/04/18 Unknown History Lisinopril [Zestril] 40 mg PO DAILY 06/04/18 06/04/18 Unknown History Potassium Chloride [Klor-Con] 20 meq PO DAILY 06/04/18 06/04/18 Unknown History Sertraline [Zoloft] 150 mg PO QAM 06/04/18 06/04/18 Unknown History Valproic Acid (As Sodium Salt) 500 mg PO BID 06/04/18 06/04/18 Unknown History [Depakene] amLODIPine [Norvasc] 10 mg PO DAILY 06/04/18 06/04/18 Unknown History chlorproMAZINE [Thorazine] 25 mg PO BID 06/04/18 06/04/18 Unknown History hydroCHLOROthiazide [HCTZ] 25 mg PO DAILY 06/04/18 06/04/18 Unknown History metFORMIN [Glucophage] 500 mg PO BID 06/04/18 06/04/18 Unknown History Active Meds: Active Medications Acetaminophen (Tylenol) 650 mg PO Q4H PRN PRN Reason: Pain MILD(1-3)/Fever >100.5/[place] Albuterol (Proventil) 2.5 mg IH Q4HRT PRN PRN Reason: Shortness Of Breath Amlodipine Besylate (Norvasc) 10 mg PO DAILY [facility] Last Admin: 06/06/18 10:49 Dose: Not Given Aspirin (Halfprin Ec) 81 mg PO DAILY [facility] Last Admin: 06/06/18 10:49 Dose: Not Given Chlorpromazine HCl (Thorazine) 25 mg PO BID [facility] Last Admin: 06/06/18 10:48 Dose: Not Given Docusate Sodium (Colace) 100 mg PO BID [facility] Last Admin: 06/06/18 10:49 Dose: Not Given Fenofibrate (Tricor) 145 mg PO DAILY [facility] Last Admin: 06/06/18 10:48 Dose: Not Given Haloperidol Decanoate (Haldol Decanoate) 25 mg IM [facility] Stop: 06/06/18 16:25 Haloperidol Lactate (Haldol) 5 mg IM Q6H PRN PRN Reason: Agitation Last Admin: 06/06/18 10:02 Dose: 5 mg Hydralazine HCl (Apresoline) 20 mg IV Q4HR PRN PRN Reason: Blood Pressure Last Admin: 06/06/18 10:47 Dose: 20 mg Piperacillin Sod/Tazobactam Sod (Zosyn/Ns 4.5gm/100ml) 4.5 gm in 100 mls @ 200 mls/hr IV Q8HR [facility]; Protocol Last Admin: 06/06/18 14:39 Dose: 200 mls/hr Valproate Sodium 750 mg/ (Sodium Chloride) 107.5 mls @ 100 mls/hr IV Q8HR [facility] Potassium Chloride 20 meq/ (Dextrose) 1,010 mls @ 125 mls/hr IV DIRECT [facility] Last Admin: 06/06/18 14:40 Dose: 125 mls/hr Lisinopril (Zestril) 40 mg PO DAILY [facility] Last Admin: 06/06/18 10:47 Dose: Not Given Ondansetron HCl (Zofran) 4 mg IV Q8H PRN PRN Reason: Nausea And Vomiting Potassium Chloride (Potassium Chloride) 20 meq PO DAILY [facility] Last Admin: 06/06/18 10:48 Dose: Not Given Sertraline HCl (Zoloft) 150 mg PO QAM [facility] Last Admin: 06/06/18 10:48 Dose: Not Given Sodium Chloride (Sodium Chloride Flush Syringe 10 Ml) 10 ml IV BID [facility] Last Admin: 06/06/18 10:50 Dose: 10 ml Sodium Chloride (Sodium Chloride Flush Syringe 10 Ml) 10 ml IV PRN PRN PRN Reason: LINE FLUSH Review of Systems ROS unobtainable: due to mental status Physical Examination - Vital Signs Vital Signs: Vital Signs Temp Pulse Resp BP Pulse Ox 98.6 F 106 H 16 166/101 100 06/04/18 12:18 06/04/18 12:18 06/04/18 12:18 06/04/18 12:18 06/04/18 12:18 - Physical Exam Narrative exam: General Appearance: well developed but borderline overweight (per BMI) early 50s -[place] male in restraints, with face mask to prevent him spitting on caregivers or examiners per his nurse was somewhat agitated, speaking gibberish. HEENT: atraumatic, normocephalic; no bruits, 2+ Nasima without apparent soreness and without induration or enlargement, sclerae nonicteric. Oropharynx pink and moist. Neck: supple, no bruits. Heart: no murmur or extra sounds. Extremities: no clubbing, cyanosis or edema. 2+ dorsalis pedis pulses bilaterally. Neurologic Exam: Mental Status: Awake, alert, not oriented even to multiple choice, speech is mostly gibberish with a few echoed words and a few answers such as "no", cannot name pen or glasses, had not abstract. Names President after first name prompt but then gives the rest of a gibberish phrase, cannot give Drill Doctor, cannot do any other cortical testing. Cranial Nerves: huang full to visual threat, no papilledema, SVPs present, PERRLA, EOMs full without nystagmus or diplopia, facial sensation intact to pinprick and light touch, no facial weakness, and not assess Ponce, palate rises symmetrically to phonation but gags are absent, cannot assess shoulder shrug, tongue protrudes midline. Cerebellar: cannot assess finger to nose and heel to baker since he requires restraints. Sensory: cannot assess pinprick or do other testing. Motor Exam Upper Extremities: lifts left arm off the bed keeping his elbow on the bed however but no edgerman though spontaneous biceps function is at least 4+ on the left, will not lift right arm or hand off bed in no edgerman on the right though perhaps some finger extension at times. Omer spontaneously intact on the left could not on the right. Will not or cannot edgerman on either side. Tone is decreased on the right. No atrophy or fasciculations are noted visually. Motor Exam Lower Extremities: Moves left leg more than right, iliopsoas is 2+ right and 5 left, quadriceps is 4+ right and 4 left, anterior tibials are 4+, and gastrocnemius are 4 X 2. Omer are slower on the right. Tone is decreased on the right. No atrophy or fasciculations are noted visually. Reflexes: Palmomental, snout and jaw jerk are negative. Triceps, biceps and brachioradialis are trace bilaterally. Mackenzie's is negative bilaterally. Knee jerks and ankle jerks are 0 bilaterally without clonus. Toes are upgoing bilaterally to Babinski testing. - Assessment Assessment Interval: Baseline (There is no obvious last known well time. Some of the patient's symptoms appear to wax and wane. He does not appear to be a TPA candidate. Difficult to do full NIHSS as patient has history of intellectual disability and psychosis and does not follow all commands.) - Level of Consciousness 1a. Level of Consciousness: alert/keenly responsive - LOC Questions 1b. LOC Questions: answers no questions correctly - LOC Command 1c. LOC Commands: performs 1 task correctly - Best Gaze 2. Best Gaze: normal - Visual 3. Visual: no visual loss - Facial Palsy 4. Facial Palsy: normal symmetrical movement - Motor Arm 5b. Motor Arm Right: no drift - Motor Leg 6a. Motor Leg Left: no drift - Limb Ataxia 7. Limb Ataxia: absent - Sensory 8. Sensory: normal - Best Language 9. Best Language: mild/moderate aphasia - Dysarthria 10. Dysarthria: severe dysarthria - Extinction and Inattention 11. Extinction/Inattention: no abnormality Results - Laboratory Findings CBC and BMP: 06/06/18 05:09 06/06/18 05:09 Abnormal Lab Findings: Abnormal Labs 06/04/18 06/04/18 06/05/18 12:28 12:28 04:41 WBC 14.3 H Hgb Hct Plt Count 552 H Lymph % (Auto) 4.7 L [place] % (Auto) Lymph # 0.7 L [place] # Seg Neutrophils % 89.0 H Seg Neutrophils # 12.7 H Sodium 151 H 155 H Potassium 3.5 L Chloride 114.9 H Carbon Dioxide 21 L BUN 24 H 21 H Glucose 123 H 118 H AST 105 H ALT 73 H Alkaline Phosphatase 32 L Urine Creatinine Valproic Acid 06/05/18 06/06/18 06/06/18 14:05 05:09 05:09 WBC Hgb 11.6 L Hct 35.2 L Plt Count 520 H Lymph % (Auto) 12.2 L [place] % (Auto) 10.6 H Lymph # 1.1 L [place] # 1.0 H Seg Neutrophils % 75.6 H Seg Neutrophils # Sodium 156 H Potassium 3.2 L Chloride 116.0 H Carbon Dioxide BUN Glucose 121 H AST ALT Alkaline Phosphatase Urine Creatinine Valproic Acid < 2.8 L 06/06/18 13:00 WBC Hgb Hct Plt Count Lymph % (Auto) [place] % (Auto) Lymph # [place] # Seg Neutrophils % Seg Neutrophils # Sodium Potassium Chloride Carbon Dioxide BUN Glucose AST ALT Alkaline Phosphatase Urine Creatinine 144.6 H Valproic Acid Assessment and Plan Impression: 1. Right hemiparesis 2. Dysphasia, fluent 3. Metabolic encephalopathy Plan: 1. Sodium being corrected by Dr. Escalante. 2. CT scan shows mild cerebral atrophy. I have ordered a brain MRI because of the right hemiparesis to see if any acute or subacute lesion is seen versus an old lesion. If negative, may need LP unless he improves. Hard to know what his baseline is. 3. Will repeat liver function tests since they were elevated. 4. I have increased his Depakote since his level was low. Giving it IV since not able to eat safely. 5. May need hematologic workup for elevated platelets. 6. EEG shows frontal intermittent rhythmic delta activity (FIRDA) suggesting a diffuse or midline process. 60 minutes spent with difficult exam and history since dysphasic. Thank you for an interesting consultation on this unfortunate early 50s man.
[2018-06-06] MEDS: NACL 0.9% IV SCH (21:48)
[2018-06-06] MEDS: DEPACON IV SCH (21:48)
[2018-06-07] MEDS: KCL 20 MEQ in D5W 1,000 ML IV SCH ×2 (02:39→15:34)
[2018-06-07 05:13] LABS: Basophils # (Auto) 0.1 K/mm3 (0.0-0.1); Basophils % (Auto) 0.7 % (0.0-1.8); Eosinophils # (Auto) 0.2 K/mm3 (0.0-0.4); Eosinophils % (Auto) 2.2 % (0.0-4.3); Hematocrit 35.7 % (35.5-45.6); Hemoglobin 11.9 gm/dl (11.8-15.2); Lymphocytes # (Auto) 1.5 K/mm3 (1.2-5.4); Mean Corpuscular HGB Conc 33 % (32-34); Mean Corpuscular Hemoglobin 30 pg (28-32); Mean Corpuscular Volume 91 fl (84-94); Monocytes # (Auto) 0.9 K/mm3 (0.0-0.8); Monocytes % (Auto) 10.3 % (0.0-7.3); Platelet Count 555 K/mm3 (140-440); Red Blood Count 3.92 M/mm3 (3.65-5.03); Red Cell Distribution Width 15.1 % (13.2-15.2)
[2018-06-07 05:33] LABS: BUN/Creatinine Ratio 14; Blood Urea Nitrogen 14 mg/dL (9-20); Calcium 8.7 mg/dL (8.4-10.2); Hemolysis Index 12
[2018-06-07 06:02] LABS: Alanine Aminotransferase 38 units/L (7-56)
[2018-06-07] MEDS: ZOSYN/NS 4.5GM/100ML 4.5 GM/100 ML VIAL IV SCH ×3 (06:16→21:24)
[2018-06-07] MEDS: NACL 0.9% IV SCH ×3 (06:18→21:28)
[2018-06-07] MEDS: DEPACON IV SCH ×3 (06:18→21:28)
[2018-06-07] MEDS: COLACE PO SCH ×2 (10:00→21:28)
[2018-06-07] MEDS: ZOLOFT PO SCH (10:00)
[2018-06-07] MEDS: ZESTRIL PO SCH (10:00)
[2018-06-07] MEDS: NORVASC PO SCH (10:00)
[2018-06-07] MEDS: SODIUM CHLORIDE FLUSH SYRINGE 10 ML IV SCH (10:00)
[2018-06-07] MEDS: TRICOR PO SCH (10:00)
[2018-06-07] MEDS: POTASSIUM CHLORIDE PO SCH (10:00)
[2018-06-07] MEDS: HALFPRIN EC PO SCH (10:00)
--- NOTE | 2018-06-07 10:16 | Progress Note ---
Assessment and Plan Impression: * Hypernatremia * dehydration * Schizoaffective disorder * AMS Plan: * D5w with kcl--increase reate today * daily lytes * strict i/os * increase free H20 intake * follow up urine lytes and UA * stopped HCTZ Subjective Date of service: 06/07/18 Principal diagnosis: hypernatremia Interval history: resting well in bed today Objective - Exam Narrative Exam: General appearance: Present: mild distress - EENT Eyes: Present: PERRL ENT: hearing intact, clear oral mucosa - Neck Neck: Present: supple, normal ROM - Respiratory Respiratory effort: normal Respiratory: bilateral: CTA - Cardiovascular Heart Sounds: Present: S1 & S2. Absent: rub, click - Extremities Extremities: pulses symmetrical, No edema Peripheral Pulses: within normal limits - Abdominal General gastrointestinal: Present: soft, non-tender, non-distended, normal bowel sounds Male genitourinary: Present: normal - Integumentary Integumentary: Present: clear, dry, clammy - Musculoskeletal Musculoskeletal: generalized weakness - Psychiatric Psychiatric: no appropriate mood/affect, no intact judgment & insight, no memory intact, cooperative - Neurologic Neurologic: moves all extremities, no gait normal - Vital Signs Vital signs: Vital Signs - 12hr 06/06/18 06/06/18 06/07/18 23:28 23:55 06:26 Temperature 98.9 F 98.5 F Pulse Rate 80 93 H 94 H Respiratory 18 18 Rate Blood Pressure 189/127 189/127 162/98 O2 Sat by Pulse 100 97 Oximetry - Lab 06/07/18 04:34 06/07/18 04:34 Most recent lab results Calcium 8.7 mg/dL (8.4-10.2) 06/07/18 04:34 Urine Creatinine 144.6 mg/dL (0.1-20.0) H 06/06/18 13:00 Urine Sodium 38 mmol/L 06/06/18 13:00
--- NOTE | 2018-06-07 11:50 | Progress Note ---
Assessment and Plan Assessment and plan: Sepsis. Continue IV antibiotics. Follow-up blood cultures(negative 48 hours) , CBC, serum lactic acid levels and chest x-ray. Continue IV antibiotics of Zosyn. Toxic metabolic encephalopathy. Neurology following. CT scan of head negative. Follow-up neurochecks, EEG suggestive of metabolic dysfunction. Continue to treat underlying causes. Hypernatremia. Etiology likely secondary to volume depletion. HCTZ on hold. Follow-up BMP in a.m. Nephrology following Hypertension. Continue to attempt his medications. Psychosis/schizoaffective disorder. Mental health evaluation. History Interval history: No new issues overnight. Hospitalist Physical - Constitutional Vitals: Temp Pulse Resp BP Pulse Ox 98.5 F 94 H 18 162/98 100 06/07/18 06:26 06/07/18 06:26 06/07/18 06:26 06/07/18 06:26 06/07/18 10:00 General appearance: Present: mild distress - EENT Eyes: Present: PERRL, EOM intact ENT: hearing intact, clear oral mucosa, dentition normal - Neck Neck: Present: supple, normal ROM - Respiratory Respiratory effort: normal Respiratory: bilateral: CTA - Cardiovascular Rhythm: regular Heart Sounds: Present: S1 & S2. Absent: gallop, rub - Extremities Extremities: no ischemia, No edema, Full ROM - Abdominal General gastrointestinal: soft, non-tender, non-distended, normal bowel sounds - Integumentary Integumentary: Present: clear, warm, dry - Neurologic Neurologic: CNII-XII intact, moves all extremities Results - Labs CBC & Chem 7: 06/07/18 04:34 06/07/18 04:34 Labs: Laboratory Last Values WBC 9.2 K/mm3 (4.5-11.0) 06/07/18 04:34 RBC 3.92 M/mm3 (3.65-5.03) 06/07/18 04:34 Hgb 11.9 gm/dl (11.8-15.2) 06/07/18 04:34 Hct 35.7 % (35.5-45.6) 06/07/18 04:34 MCV 91 fl (84-94) 06/07/18 04:34 MCH 30 pg (28-32) 06/07/18 04:34 MCHC 33 % (32-34) 06/07/18 04:34 RDW 15.1 % (13.2-15.2) 06/07/18 04:34 Plt Count 555 K/mm3 (140-440) H 06/07/18 04:34 Lymph % (Auto) 16.0 % (13.4-35.0) 06/07/18 04:34 [place] % (Auto) 10.3 % (0.0-7.3) H 06/07/18 04:34 Eos % (Auto) 2.2 % (0.0-4.3) 06/07/18 04:34 Baso % (Auto) 0.7 % (0.0-1.8) 06/07/18 04:34 Lymph # 1.5 K/mm3 (1.2-5.4) 06/07/18 04:34 [place] # 0.9 K/mm3 (0.0-0.8) H 06/07/18 04:34 Eos # 0.2 K/mm3 (0.0-0.4) 06/07/18 04:34 Baso # 0.1 K/mm3 (0.0-0.1) 06/07/18 04:34 Seg Neutrophils % 70.8 % (40.0-70.0) H 06/07/18 04:34 Seg Neutrophils # 6.5 K/mm3 (1.8-7.7) 06/07/18 04:34 PT 14.7 Sec. (12.2-14.9) 06/04/18 12:28 INR 1.09 (0.87-1.13) 06/04/18 12:28 APTT 29.0 Sec. (24.2-36.6) 06/04/18 12:28 Sodium 157 mmol/L (137-145) H 06/07/18 04:34 Potassium 3.5 mmol/L (3.6-5.0) L 06/07/18 04:34 Chloride 119.1 mmol/L (98-107) H 06/07/18 04:34 Carbon Dioxide 27 mmol/L (22-30) 06/07/18 04:34 Anion Gap 14 mmol/L 06/07/18 04:34 BUN 14 mg/dL (9-20) 06/07/18 04:34 Creatinine 1.0 mg/dL (0.8-1.5) 06/07/18 04:34 Estimated GFR > 60 ml/min 06/07/18 04:34 BUN/Creatinine Ratio 14 % 06/07/18 04:34 Glucose 171 mg/dL (75-100) H 06/07/18 04:34 Lactic Acid 1.40 mmol/L (0.7-2.0) 06/04/18 23:18 Calcium 8.7 mg/dL (8.4-10.2) 06/07/18 04:34 Total Bilirubin 0.40 mg/dL (0.1-1.2) 06/04/18 12:28 AST 48 units/L (5-40) H 06/07/18 04:34 ALT 38 units/L (7-56) 06/07/18 04:34 Alkaline Phosphatase 32 units/L (35-129) L 06/04/18 12:28 Ammonia 57.0 umol/L (25-60) 06/06/18 10:23 Troponin T < 0.010 ng/mL (0.00-0.029) 06/04/18 12:28 Total Protein 7.7 g/dL (6.3-8.2) 06/04/18 12:28 Albumin 4.2 g/dL (3.9-5) 06/04/18 12:28 Albumin/Globulin Ratio 1.2 % 06/04/18 12:28 TSH 0.794 mlU/mL (0.270-4.200) 06/04/18 12:28 Urine Color Yellow (Yellow) 06/06/18 13:00 Urine Turbidity Slightly-cloudy (Clear) 06/06/18 13:00 Urine pH 5.0 (5.0-7.0) 06/06/18 13:00 Ur Specific [place] 1.018 (1.003-1.030) 06/06/18 13:00 Urine Protein <15 mg/dl mg/dL (Negative) 06/06/18 13:00 Urine Glucose (UA) Neg mg/dL (Negative) 06/06/18 13:00 Urine Ketones 20 mg/dL (Negative) 06/06/18 13:00 Urine Blood Neg (Negative) 06/06/18 13:00 Urine Nitrite Neg (Negative) 06/06/18 13:00 Urine Bilirubin Neg (Negative) 06/06/18 13:00 Urine Urobilinogen 2.0 mg/dL (<2.0) 06/06/18 13:00 Ur Leukocyte Esterase Neg (Negative) 06/06/18 13:00 Urine WBC (Auto) 3.0 /HPF (0.0-6.0) 06/06/18 13:00 Urine RBC (Auto) 1.0 /HPF (0.0-6.0) 06/06/18 13:00 U Epithel Cells (Auto) 1.0 /HPF (0-13.0) 06/06/18 13:00 Urine Bacteria (Auto) 1+ /HPF (Negative) 06/04/18 18:41 Uric Acid Crystals Few 06/06/18 13:00 Hyaline Casts 10 /LPF 06/04/18 18:41 Urine Mucus Few /HPF 06/04/18 18:41 Urine Creatinine 144.6 mg/dL (0.1-20.0) H 06/06/18 13:00 Urine Sodium 38 mmol/L 06/06/18 13:00 Urine Opiates Screen Presumptive negative 06/04/18 18:41 Urine Methadone Screen Presumptive negative 06/04/18 18:41 Ur Barbiturates Screen Presumptive negative 06/04/18 18:41 Valproic Acid < 2.8 ug/mL (50-100) L 06/05/18 14:05 Ur Phencyclidine Scrn Presumptive negative 06/04/18 18:41 Ur Amphetamines Screen Presumptive negative 06/04/18 18:41 U Benzodiazepines Scrn Presumptive negative 06/04/18 18:41 Urine Cocaine Screen Presumptive negative 06/04/18 18:41 U Marijuana (THC) Screen Presumptive negative 06/04/18 18:41 Drugs of Abuse Note Disclamer 06/04/18 18:41 Plasma/Serum Alcohol < 0.01 % (0-0.07) 06/04/18 12:28
[2018-06-07] MEDS: THORAZINE IM SCH (19:07)
[2018-06-07] MEDS: HALDOL IM PRN (21:20)
[2018-06-08] MEDS: APRESOLINE IV PRN ×2 (00:37→10:43)
[2018-06-08] MEDS: THORAZINE IM SCH ×2 (04:00→16:48)
[2018-06-08 05:50] LABS: Basophils # (Auto) 0.1 K/mm3 (0.0-0.1); Basophils % (Auto) 0.7 % (0.0-1.8); Eosinophils # (Auto) 0.2 K/mm3 (0.0-0.4); Eosinophils % (Auto) 2.7 % (0.0-4.3); Hemoglobin 11.5 gm/dl (11.8-15.2); Lymphocytes # (Auto) 1.3 K/mm3 (1.2-5.4); Monocytes # (Auto) 0.7 K/mm3 (0.0-0.8); Monocytes % (Auto) 9.2 % (0.0-7.3)
[2018-06-08 06:01] LABS: Hematocrit 34.9 % (35.5-45.6); Mean Corpuscular Hemoglobin 30 pg (28-32); Mean Corpuscular Volume 91 fl (84-94); Red Blood Count 3.84 M/mm3 (3.65-5.03)
[2018-06-08 06:02] LABS: Mean Corpuscular HGB Conc 33 % (32-34); Platelet Count 520 K/mm3 (140-440); Red Cell Distribution Width 15.1 % (13.2-15.2)
[2018-06-08 06:03] LABS: BUN/Creatinine Ratio 15; Blood Urea Nitrogen 12 mg/dL (9-20); Calcium 8.5 mg/dL (8.4-10.2); Hemolysis Index 0
[2018-06-08] MEDS: ZOSYN/NS 4.5GM/100ML 4.5 GM/100 ML VIAL IV SCH ×3 (06:13→21:55)
[2018-06-08] MEDS: NACL 0.9% IV SCH ×3 (06:21→21:57)
[2018-06-08] MEDS: DEPACON IV SCH ×3 (06:21→21:57)
[2018-06-08] MEDS: SODIUM CHLORIDE FLUSH SYRINGE 10 ML IV SCH ×3 (07:45→21:59)
[2018-06-08] MEDS: POTASSIUM CHLORIDE PO SCH (10:25)
[2018-06-08] MEDS: ZOLOFT PO SCH (10:25)
[2018-06-08] MEDS: HALFPRIN EC PO SCH (10:25)
[2018-06-08] MEDS: COLACE PO SCH ×2 (10:25→21:48)
[2018-06-08] MEDS: TRICOR PO SCH (10:25)
[2018-06-08] MEDS: ZESTRIL PO SCH (10:43)
[2018-06-08] MEDS: NORVASC PO SCH (10:43)
[2018-06-08] MEDS ORDERED: MAGNESIUM SULFATE 2GM/50ML 2 GM/50 ML BAG IV ONE (12:07)
--- NOTE | 2018-06-08 12:08 | Progress Note ---
Assessment and Plan Impression: * Hypernatremia * dehydration * Schizoaffective disorder * AMS Plan: * D5w with kcl--increase kcl today * follow up mag levels and replete * daily lytes * strict i/os * increase free H20 intake * follow up urine lytes and UA * stopped HCTZ Subjective Date of service: 06/15/18 Principal diagnosis: hypernatremia Interval history: resting well in bed today Objective - Exam Narrative Exam: General appearance: Present: mild distress - EENT Eyes: Present: PERRL ENT: hearing intact, clear oral mucosa - Neck Neck: Present: supple, normal ROM - Respiratory Respiratory effort: normal Respiratory: bilateral: CTA - Cardiovascular Heart Sounds: Present: S1 & S2. Absent: rub, click - Extremities Extremities: pulses symmetrical, No edema Peripheral Pulses: within normal limits - Abdominal General gastrointestinal: Present: soft, non-tender, non-distended, normal bowel sounds Male genitourinary: Present: normal - Integumentary Integumentary: Present: clear, dry, clammy - Musculoskeletal Musculoskeletal: generalized weakness - Psychiatric Psychiatric: no appropriate mood/affect, no intact judgment & insight, no memory intact, cooperative - Neurologic Neurologic: moves all extremities, no gait normal - Vital Signs Vital signs: Vital Signs - 12hr 06/08/18 06/08/18 06/08/18 00:37 06:20 10:00 Temperature 97.7 F Pulse Rate 88 108 H Respiratory 18 20 Rate Blood Pressure 167/110 186/99 O2 Sat by Pulse 99 Oximetry 06/08/18 10:43 Temperature Pulse Rate 83 Respiratory Rate Blood Pressure 169/106 O2 Sat by Pulse Oximetry - Lab 06/08/18 05:08 06/08/18 05:08 Most recent lab results Calcium 8.5 mg/dL (8.4-10.2) 06/08/18 05:08 Urine Creatinine 144.6 mg/dL (0.1-20.0) H 06/06/18 13:00 Urine Sodium 38 mmol/L 06/06/18 13:00
--- NOTE | 2018-06-08 12:41 | Progress Note ---
Assessment and Plan Assessment and plan: Sepsis. Continue IV antibiotics. Follow-up blood cultures(negative 72 hours) , CBC, serum lactic acid levels and chest x-ray. Continue IV antibiotics of Zosyn. Toxic metabolic encephalopathy. Neurology following. CT scan of head negative. Follow-up neurochecks, EEG suggestive of metabolic dysfunction. Continue to treat underlying causes. Hypernatremia. Improving. HCTZ on hold. Follow-up BMP in a.m. Nephrology following Hypertension. Continue to attempt his medications. Psychosis/schizoaffective disorder. Mental health evaluation. History Interval history: No new issues overnight. Hospitalist Physical - Constitutional Vitals: Temp Pulse Resp BP Pulse Ox 97.7 F 83 20 169/106 99 06/08/18 06:20 06/08/18 10:43 06/08/18 10:00 06/08/18 10:43 06/08/18 06:20 General appearance: Present: no acute distress - EENT Eyes: Present: PERRL, EOM intact ENT: hearing intact, clear oral mucosa, dentition normal - Neck Neck: Present: supple, normal ROM - Respiratory Respiratory effort: normal Respiratory: bilateral: CTA - Cardiovascular Rhythm: regular Heart Sounds: Present: S1 & S2. Absent: gallop, rub - Extremities Extremities: no ischemia, No edema, Full ROM - Abdominal General gastrointestinal: soft, non-tender, non-distended, normal bowel sounds - Integumentary Integumentary: Present: clear, warm, dry - Neurologic Neurologic: CNII-XII intact, moves all extremities Results - Labs CBC & Chem 7: 06/08/18 05:08 06/08/18 05:08 Labs: Laboratory Last Values WBC 7.5 K/mm3 (4.5-11.0) 06/08/18 05:08 RBC 3.84 M/mm3 (3.65-5.03) 06/08/18 05:08 Hgb 11.5 gm/dl (11.8-15.2) L 06/08/18 05:08 Hct 34.9 % (35.5-45.6) L 06/08/18 05:08 MCV 91 fl (84-94) 06/08/18 05:08 MCH 30 pg (28-32) 06/08/18 05:08 MCHC 33 % (32-34) 06/08/18 05:08 RDW 15.1 % (13.2-15.2) 06/08/18 05:08 Plt Count 520 K/mm3 (140-440) H 06/08/18 05:08 Lymph % (Auto) 18.0 % (13.4-35.0) 06/08/18 05:08 [place] % (Auto) 9.2 % (0.0-7.3) H 06/08/18 05:08 Eos % (Auto) 2.7 % (0.0-4.3) 06/08/18 05:08 Baso % (Auto) 0.7 % (0.0-1.8) 06/08/18 05:08 Lymph # 1.3 K/mm3 (1.2-5.4) 06/08/18 05:08 [place] # 0.7 K/mm3 (0.0-0.8) 06/08/18 05:08 Eos # 0.2 K/mm3 (0.0-0.4) 06/08/18 05:08 Baso # 0.1 K/mm3 (0.0-0.1) 06/08/18 05:08 Add Manual Diff Complete 06/08/18 05:08 Seg Neutrophils % 69.4 % (40.0-70.0) 06/08/18 05:08 Seg Neutrophils # 5.2 K/mm3 (1.8-7.7) 06/08/18 05:08 PT 14.7 Sec. (12.2-14.9) 06/04/18 12:28 INR 1.09 (0.87-1.13) 06/04/18 12:28 APTT 29.0 Sec. (24.2-36.6) 06/04/18 12:28 Sodium 154 mmol/L (137-145) H 06/08/18 05:08 Potassium 3.2 mmol/L (3.6-5.0) L 06/08/18 05:08 Chloride 117.6 mmol/L (98-107) H 06/08/18 05:08 Carbon Dioxide 25 mmol/L (22-30) 06/08/18 05:08 Anion Gap 15 mmol/L 06/08/18 05:08 BUN 12 mg/dL (9-20) 06/08/18 05:08 Creatinine 0.8 mg/dL (0.8-1.5) 06/08/18 05:08 Estimated GFR > 60 ml/min 06/08/18 05:08 BUN/Creatinine Ratio 15 % 06/08/18 05:08 Glucose 143 mg/dL (75-100) H 06/08/18 05:08 Lactic Acid 1.40 mmol/L (0.7-2.0) 06/04/18 23:18 Calcium 8.5 mg/dL (8.4-10.2) 06/08/18 05:08 Total Bilirubin 0.40 mg/dL (0.1-1.2) 06/04/18 12:28 AST 48 units/L (5-40) H 06/07/18 04:34 ALT 38 units/L (7-56) 06/07/18 04:34 Alkaline Phosphatase 32 units/L (35-129) L 06/04/18 12:28 Ammonia 57.0 umol/L (25-60) 06/06/18 10:23 Troponin T < 0.010 ng/mL (0.00-0.029) 06/04/18 12:28 Total Protein 7.7 g/dL (6.3-8.2) 06/04/18 12:28 Albumin 4.2 g/dL (3.9-5) 06/04/18 12:28 Albumin/Globulin Ratio 1.2 % 06/04/18 12:28 TSH 0.794 mlU/mL (0.270-4.200) 06/04/18 12:28 Urine Color Yellow (Yellow) 06/06/18 13:00 Urine Turbidity Slightly-cloudy (Clear) 06/06/18 13:00 Urine pH 5.0 (5.0-7.0) 06/06/18 13:00 Ur Specific [place] 1.018 (1.003-1.030) 06/06/18 13:00 Urine Protein <15 mg/dl mg/dL (Negative) 06/06/18 13:00 Urine Glucose (UA) Neg mg/dL (Negative) 06/06/18 13:00 Urine Ketones 20 mg/dL (Negative) 06/06/18 13:00 Urine Blood Neg (Negative) 06/06/18 13:00 Urine Nitrite Neg (Negative) 06/06/18 13:00 Urine Bilirubin Neg (Negative) 06/06/18 13:00 Urine Urobilinogen 2.0 mg/dL (<2.0) 06/06/18 13:00 Ur Leukocyte Esterase Neg (Negative) 06/06/18 13:00 Urine WBC (Auto) 3.0 /HPF (0.0-6.0) 06/06/18 13:00 Urine RBC (Auto) 1.0 /HPF (0.0-6.0) 06/06/18 13:00 U Epithel Cells (Auto) 1.0 /HPF (0-13.0) 06/06/18 13:00 Urine Bacteria (Auto) 1+ /HPF (Negative) 06/04/18 18:41 Uric Acid Crystals Few 06/06/18 13:00 Hyaline Casts 10 /LPF 06/04/18 18:41 Urine Mucus Few /HPF 06/04/18 18:41 Urine Creatinine 144.6 mg/dL (0.1-20.0) H 06/06/18 13:00 Urine Sodium 38 mmol/L 06/06/18 13:00 Urine Opiates Screen Presumptive negative 06/04/18 18:41 Urine Methadone Screen Presumptive negative 06/04/18 18:41 Ur Barbiturates Screen Presumptive negative 06/04/18 18:41 Valproic Acid 60.5 ug/mL (50-100) 06/07/18 13:40 Ur Phencyclidine Scrn Presumptive negative 06/04/18 18:41 Ur Amphetamines Screen Presumptive negative 06/04/18 18:41 U Benzodiazepines Scrn Presumptive negative 06/04/18 18:41 Urine Cocaine Screen Presumptive negative 06/04/18 18:41 U Marijuana (THC) Screen Presumptive negative 06/04/18 18:41 Drugs of Abuse Note Disclamer 06/04/18 18:41 Plasma/Serum Alcohol < 0.01 % (0-0.07) 06/04/18 12:28
--- NOTE | 2018-06-08 16:32 | Progress Note ---
Subjective - Reason for Consult Consult date: 06/08/18 Reason for consult: follow up - Chief Complaint Chief complaint: spitting The current assessment is consistent with the psychiatric evaluation from Dr. Thao 06/06/2018. Mr. Nair is a 53-year-old male with history of hypertension diabetes as well as schizo affective disorder now presenting secondary to persistent confusion. Patient was recently at [facility] and transferred to ER for the evaluation of mental status changes. On examination, patient was found to be septic and currently presenting with hypernatremia. Currently it appears that neurology is on consult to further evaluate for toxic metabolic encephalopathy. On my examination, patient appeared very confused and was in 4 point restraints. Patient was unable to provide any meaningful information. He currently had thorazine and haldol as available medications for agitation. Mental Status Exam - Vital signs Last Vital Signs Temp 97.7 F 06/08/18 06:20 Pulse 83 06/08/18 10:43 Resp 20 06/08/18 10:00 BP 169/106 06/08/18 10:43 Pulse Ox 98 06/08/18 10:00 - Exam Narrative exam: He is in 4 point restraints. He is intermittently spitting and groaning loudly. Eyes are open but does not make eye contact. He is unable to complete his ADLs and requires total care. Assessment and Plan Assessment: Schizoaffective disorder Mental status changes secondary to sepsis/hypernatremia and other undetermined etiologies Recommendations: 1. Frequently reorient patient and involve him/her in their care (simple explanations of procedures, tests, medications). 2. Lights on and shades open during daytime hours. 3. Write date and goals of care in a visible place. 4. Try to avoid unnecessary interruptions to sleep during nighttime hours. 5. Obtain glasses, hearing aids from home if patient uses these at baseline. 6. Avoid medications that may exacerbate delirium (especially narcotics, benzodiazepines, barbiturates, ambien, lunesta, and medications with excessive anticholinergic properties). 7. Use haloperidol 2 mg po/im/iv prn q4-6 hours for physical agitation/ aggression 8. Avoid using thorazine and haldol. Staffed with Dr. Jones Thao.
[2018-06-08] MEDS: KCL 40 MEQ in D5W 1,000 ML IV SCH (17:16)
[2018-06-08] MEDS: HALDOL IM PRN (21:57)
[2018-06-09] MEDS: APRESOLINE IV PRN ×2 (04:12→23:44)
[2018-06-09] MEDS: THORAZINE IM SCH ×2 (04:13→17:11)
[2018-06-09] MEDS: ZOSYN/NS 4.5GM/100ML 4.5 GM/100 ML VIAL IV SCH ×3 (05:36→22:41)
[2018-06-09] MEDS: KCL 40 MEQ in D5W 1,000 ML IV SCH (06:13)
[2018-06-09] MEDS: DEPACON IV SCH ×3 (06:14→23:44)
[2018-06-09] MEDS: NACL 0.9% IV SCH ×3 (06:14→23:44)
[2018-06-09 08:25] LABS: Basophils % (Auto) 0.5 % (0.0-1.8); Eosinophils # (Auto) 0.2 K/mm3 (0.0-0.4); Eosinophils % (Auto) 2.3 % (0.0-4.3); Hematocrit 35.8 % (35.5-45.6); Hemoglobin 11.7 gm/dl (11.8-15.2); Lymphocytes # (Auto) 1.4 K/mm3 (1.2-5.4); Lymphocytes % (Auto) 17.8 % (13.4-35.0); Mean Corpuscular HGB Conc 33 % (32-34); Mean Corpuscular Hemoglobin 30 pg (28-32); Mean Corpuscular Volume 91 fl (84-94); Monocytes # (Auto) 0.7 K/mm3 (0.0-0.8); Monocytes % (Auto) 9.4 % (0.0-7.3); Platelet Count 482 K/mm3 (140-440); Red Blood Count 3.92 M/mm3 (3.65-5.03); Red Cell Distribution Width 15.1 % (13.2-15.2)
[2018-06-09 08:29] LABS: BUN/Creatinine Ratio 11; Blood Urea Nitrogen 9 mg/dL (9-20); Calcium 8.2 mg/dL (8.4-10.2); Hemolysis Index 5
--- NOTE | 2018-06-09 09:46 | Progress Note ---
Assessment and Plan Impression: * Hypernatremia * dehydration * Schizoaffective disorder * AMS Plan: * D5w with kcl--increaseed kcl * NA is better today * k is improving * follow up mag levels and replete prn * daily lytes * strict i/os * increase free H20 intake * stopped HCTZ Subjective Date of service: 06/09/18 Principal diagnosis: hypernatremia Interval history: resting well in bed today Objective - Exam Narrative Exam: General appearance: Present: mild distress - EENT Eyes: Present: PERRL ENT: hearing intact, clear oral mucosa - Neck Neck: Present: supple, normal ROM - Respiratory Respiratory effort: normal Respiratory: bilateral: CTA - Cardiovascular Heart Sounds: Present: S1 & S2. Absent: rub, click - Extremities Extremities: pulses symmetrical, No edema Peripheral Pulses: within normal limits - Abdominal General gastrointestinal: Present: soft, non-tender, non-distended, normal bowel sounds Male genitourinary: Present: normal - Integumentary Integumentary: Present: clear, dry, clammy - Musculoskeletal Musculoskeletal: generalized weakness - Psychiatric Psychiatric: no appropriate mood/affect, no intact judgment & insight, no memory intact, cooperative - Neurologic Neurologic: moves all extremities, no gait normal - Vital Signs Vital signs: Vital Signs - 12hr 06/08/18 06/09/18 06/09/18 22:00 01:01 04:12 Temperature 98.1 F Pulse Rate 90 80 Respiratory 20 Rate Blood Pressure 161/106 169/106 O2 Sat by Pulse 100 99 Oximetry 06/09/18 05:21 Temperature 97.9 F Pulse Rate 110 H Respiratory 20 Rate Blood Pressure 155/94 O2 Sat by Pulse 97 Oximetry - Lab 06/09/18 07:54 06/09/18 07:54 Most recent lab results Calcium 8.2 mg/dL (8.4-10.2) L 06/09/18 07:54 Magnesium 2.50 mg/dL (1.7-2.3) H 06/09/18 07:54 Urine Creatinine 144.6 mg/dL (0.1-20.0) H 06/06/18 13:00 Urine Sodium 38 mmol/L 06/06/18 13:00
[2018-06-09] MEDS: COLACE PO SCH ×2 (10:03→22:43)
[2018-06-09] MEDS: HALFPRIN EC PO SCH (10:11)
[2018-06-09] MEDS: NORVASC PO SCH (10:12)
[2018-06-09] MEDS: TRICOR PO SCH (10:13)
[2018-06-09] MEDS: ZOLOFT PO SCH (10:14)
[2018-06-09] MEDS: ZESTRIL PO SCH (10:14)
[2018-06-09] MEDS: SODIUM CHLORIDE FLUSH SYRINGE 10 ML IV SCH ×2 (10:15→22:43)
[2018-06-09] MEDS: POTASSIUM CHLORIDE PO SCH (11:12)
--- NOTE | 2018-06-09 11:14 | Progress Note ---
Assessment and Plan Assessment and plan: Sepsis. Continue IV antibiotics. Follow-up blood cultures(negative 72 hours) , CBC, serum lactic acid levels and chest x-ray. Continue IV antibiotics of Zosyn. Toxic metabolic encephalopathy. Neurology following. CT scan of head negative. Follow-up neurochecks, EEG suggestive of metabolic dysfunction. Continue to treat underlying causes. Hypernatremia. Improving. HCTZ on hold. Follow-up BMP in a.m. Nephrology following Hypertension. Continue to attempt his medications. Psychosis/schizoaffective disorder. Mental health evaluation. History Interval history: No new issues overnight. Hospitalist Physical - Constitutional Vitals: Temp Pulse Resp BP Pulse Ox 97.9 F 110 H 20 155/94 97 06/09/18 05:21 06/09/18 05:21 06/09/18 05:21 06/09/18 05:21 06/09/18 05:21 General appearance: Present: no acute distress - EENT Eyes: Present: PERRL, EOM intact ENT: hearing intact, clear oral mucosa, dentition normal - Neck Neck: Present: supple, normal ROM - Respiratory Respiratory effort: normal Respiratory: bilateral: CTA - Cardiovascular Rhythm: regular Heart Sounds: Present: S1 & S2. Absent: gallop, rub - Extremities Extremities: no ischemia, No edema, Full ROM - Abdominal General gastrointestinal: soft, non-tender, non-distended, normal bowel sounds - Integumentary Integumentary: Present: clear, warm, dry - Neurologic Neurologic: CNII-XII intact, moves all extremities Results - Labs CBC & Chem 7: 06/09/18 07:54 06/09/18 07:54 Labs: Laboratory Last Values WBC 7.8 K/mm3 (4.5-11.0) 06/09/18 07:54 RBC 3.92 M/mm3 (3.65-5.03) 06/09/18 07:54 Hgb 11.7 gm/dl (11.8-15.2) L 06/09/18 07:54 Hct 35.8 % (35.5-45.6) 06/09/18 07:54 MCV 91 fl (84-94) 06/09/18 07:54 MCH 30 pg (28-32) 06/09/18 07:54 MCHC 33 % (32-34) 06/09/18 07:54 RDW 15.1 % (13.2-15.2) 06/09/18 07:54 Plt Count 482 K/mm3 (140-440) H 06/09/18 07:54 Lymph % (Auto) 17.8 % (13.4-35.0) 06/09/18 07:54 [place] % (Auto) 9.4 % (0.0-7.3) H 06/09/18 07:54 Eos % (Auto) 2.3 % (0.0-4.3) 06/09/18 07:54 Baso % (Auto) 0.5 % (0.0-1.8) 06/09/18 07:54 Lymph # 1.4 K/mm3 (1.2-5.4) 06/09/18 07:54 [place] # 0.7 K/mm3 (0.0-0.8) 06/09/18 07:54 Eos # 0.2 K/mm3 (0.0-0.4) 06/09/18 07:54 Baso # 0.0 K/mm3 (0.0-0.1) 06/09/18 07:54 Add Manual Diff Complete 06/08/18 05:08 Seg Neutrophils % 70.0 % (40.0-70.0) 06/09/18 07:54 Seg Neutrophils # 5.4 K/mm3 (1.8-7.7) 06/09/18 07:54 PT 14.7 Sec. (12.2-14.9) 06/04/18 12:28 INR 1.09 (0.87-1.13) 06/04/18 12:28 APTT 29.0 Sec. (24.2-36.6) 06/04/18 12:28 Sodium 150 mmol/L (137-145) H 06/09/18 07:54 Potassium 3.4 mmol/L (3.6-5.0) L 06/09/18 07:54 Chloride 114.7 mmol/L (98-107) H 06/09/18 07:54 Carbon Dioxide 24 mmol/L (22-30) 06/09/18 07:54 Anion Gap 15 mmol/L 06/09/18 07:54 BUN 9 mg/dL (9-20) 06/09/18 07:54 Creatinine 0.8 mg/dL (0.8-1.5) 06/09/18 07:54 Estimated GFR > 60 ml/min 06/09/18 07:54 BUN/Creatinine Ratio 11 % 06/09/18 07:54 Glucose 159 mg/dL (75-100) H 06/09/18 07:54 POC Glucose 151 (70-105) H 06/09/18 08:30 Lactic Acid 1.40 mmol/L (0.7-2.0) 06/04/18 23:18 Calcium 8.2 mg/dL (8.4-10.2) L 06/09/18 07:54 Magnesium 2.50 mg/dL (1.7-2.3) H 06/09/18 07:54 Total Bilirubin 0.40 mg/dL (0.1-1.2) 06/04/18 12:28 AST 48 units/L (5-40) H 06/07/18 04:34 ALT 38 units/L (7-56) 06/07/18 04:34 Alkaline Phosphatase 32 units/L (35-129) L 06/04/18 12:28 Ammonia 57.0 umol/L (25-60) 06/06/18 10:23 Troponin T < 0.010 ng/mL (0.00-0.029) 06/04/18 12:28 Total Protein 7.7 g/dL (6.3-8.2) 06/04/18 12:28 Albumin 4.2 g/dL (3.9-5) 06/04/18 12:28 Albumin/Globulin Ratio 1.2 % 06/04/18 12:28 TSH 0.794 mlU/mL (0.270-4.200) 06/04/18 12:28 Urine Color Yellow (Yellow) 06/06/18 13:00 Urine Turbidity Slightly-cloudy (Clear) 06/06/18 13:00 Urine pH 5.0 (5.0-7.0) 06/06/18 13:00 Ur Specific [place] 1.018 (1.003-1.030) 06/06/18 13:00 Urine Protein <15 mg/dl mg/dL (Negative) 06/06/18 13:00 Urine Glucose (UA) Neg mg/dL (Negative) 06/06/18 13:00 Urine Ketones 20 mg/dL (Negative) 06/06/18 13:00 Urine Blood Neg (Negative) 06/06/18 13:00 Urine Nitrite Neg (Negative) 06/06/18 13:00 Urine Bilirubin Neg (Negative) 06/06/18 13:00 Urine Urobilinogen 2.0 mg/dL (<2.0) 06/06/18 13:00 Ur Leukocyte Esterase Neg (Negative) 06/06/18 13:00 Urine WBC (Auto) 3.0 /HPF (0.0-6.0) 06/06/18 13:00 Urine RBC (Auto) 1.0 /HPF (0.0-6.0) 06/06/18 13:00 U Epithel Cells (Auto) 1.0 /HPF (0-13.0) 06/06/18 13:00 Urine Bacteria (Auto) 1+ /HPF (Negative) 06/04/18 18:41 Uric Acid Crystals Few 06/06/18 13:00 Hyaline Casts 10 /LPF 06/04/18 18:41 Urine Mucus Few /HPF 06/04/18 18:41 Urine Creatinine 144.6 mg/dL (0.1-20.0) H 06/06/18 13:00 Urine Sodium 38 mmol/L 06/06/18 13:00 Urine Opiates Screen Presumptive negative 06/04/18 18:41 Urine Methadone Screen Presumptive negative 06/04/18 18:41 Ur Barbiturates Screen Presumptive negative 06/04/18 18:41 Valproic Acid 60.5 ug/mL (50-100) 06/07/18 13:40 Ur Phencyclidine Scrn Presumptive negative 06/04/18 18:41 Ur Amphetamines Screen Presumptive negative 06/04/18 18:41 U Benzodiazepines Scrn Presumptive negative 06/04/18 18:41 Urine Cocaine Screen Presumptive negative 06/04/18 18:41 U Marijuana (THC) Screen Presumptive negative 06/04/18 18:41 Drugs of Abuse Note Disclamer 06/04/18 18:41 Plasma/Serum Alcohol < 0.01 % (0-0.07) 06/04/18 12:28
[2018-06-09 12:35] LABS: BUN/Creatinine Ratio 10; Blood Urea Nitrogen 8 mg/dL (9-20); Hemolysis Index 0
[2018-06-09] MEDS: HALDOL IM PRN (22:43)
[2018-06-10] MEDS: THORAZINE IM SCH (04:24)
[2018-06-10] MEDS: ZOSYN/NS 4.5GM/100ML 4.5 GM/100 ML VIAL IV SCH ×3 (05:30→21:33)
[2018-06-10 06:43] LABS: Basophils % (Auto) 0.4 % (0.0-1.8); Eosinophils # (Auto) 0.2 K/mm3 (0.0-0.4); Hematocrit 33.1 % (35.5-45.6); Lymphocytes # (Auto) 1.3 K/mm3 (1.2-5.4); Lymphocytes % (Auto) 17.2 % (13.4-35.0); Mean Corpuscular HGB Conc 33 % (32-34); Mean Corpuscular Hemoglobin 30 pg (28-32); Mean Corpuscular Volume 91 fl (84-94); Monocytes # (Auto) 0.7 K/mm3 (0.0-0.8); Monocytes % (Auto) 9.5 % (0.0-7.3); Platelet Count 443 K/mm3 (140-440); Red Blood Count 3.63 M/mm3 (3.65-5.03); Red Cell Distribution Width 15.2 % (13.2-15.2)
[2018-06-10] MEDS: DEPACON IV SCH ×3 (06:43→21:33)
[2018-06-10] MEDS: NACL 0.9% IV SCH ×3 (06:43→21:33)
[2018-06-10 07:16] LABS: BUN/Creatinine Ratio 9; Blood Urea Nitrogen 7 mg/dL (9-20); Calcium 8.3 mg/dL (8.4-10.2); Hemolysis Index 53
--- NOTE | 2018-06-10 08:36 | Progress Note ---
Assessment and Plan Impression: * Hypernatremia * dehydration * Schizoaffective disorder * AMS Plan: * Potassium is better . Reduce kcl in IVF * NA is better today * mag level is 2.5 * daily lytes * strict i/os * increase free H20 intake * Off HCTZ Subjective Date of service: 06/10/18 Principal diagnosis: hypernatremia Interval history: patient is awake and alert . Currently on restraints . NPO Objective - Vital Signs Vital signs: Vital Signs - 12hr 06/09/18 06/09/18 06/10/18 22:54 23:44 06:26 Temperature 99.0 F 98.7 F Pulse Rate 96 H 93 H 118 H Respiratory 20 20 Rate Blood Pressure 168/106 168/106 136/100 O2 Sat by Pulse 98 95 Oximetry - General Appearance General appearance: well-developed, well-nourished, appears stated age EENT: PERRL, mucous membranes moist Neck: no JVD, no thyromegaly, no carotid bruit, supple Respiratory: Present: Clear to Ascultation Cardiology: regular, normal heart rate, S1S2, no murmurs Gastrointestinal: normal, normoactive bowel sounds Integumentary: no rash, warm and dry, other (no edema ) - Lab 06/10/18 05:49 06/10/18 05:49 Most recent lab results Calcium 8.3 mg/dL (8.4-10.2) L 06/10/18 05:49 Magnesium 2.50 mg/dL (1.7-2.3) H 06/09/18 07:54 Urine Creatinine 144.6 mg/dL (0.1-20.0) H 06/06/18 13:00 Urine Sodium 38 mmol/L 06/06/18 13:00
--- NOTE | 2018-06-10 09:58 | Progress Note ---
Assessment and Plan Assessment and plan: Sepsis. Continue IV antibiotics. Follow-up blood cultures(negative 72 hours) , CBC, serum lactic acid levels and chest x-ray. Continue IV antibiotics of Zosyn. Toxic metabolic encephalopathy. Neurology following. CT scan of head negative. Follow-up neurochecks, EEG suggestive of metabolic dysfunction. Continue to treat underlying causes. Hypernatremia. Improving. HCTZ on hold. Follow-up BMP in a.m. Nephrology following Hypertension. Continue to attempt his medications. Psychosis/schizoaffective disorder. Psychiatry following. History Interval history: No new issues overnight. Patient still requiring 4 point restraints. Hospitalist Physical - Constitutional Vitals: Temp Pulse Resp BP Pulse Ox 98.7 F 118 H 20 136/100 95 06/10/18 06:26 06/10/18 06:26 06/10/18 06:26 06/10/18 06:26 06/10/18 06:26 General appearance: Present: no acute distress - EENT Eyes: Present: PERRL, EOM intact ENT: hearing intact, clear oral mucosa, dentition normal - Neck Neck: Present: supple, normal ROM - Respiratory Respiratory effort: normal Respiratory: bilateral: CTA - Cardiovascular Rhythm: regular Heart Sounds: Present: S1 & S2. Absent: gallop, rub - Extremities Extremities: no ischemia, No edema, Full ROM - Abdominal General gastrointestinal: soft, non-tender, non-distended, normal bowel sounds - Integumentary Integumentary: Present: clear, warm, dry - Neurologic Neurologic: CNII-XII intact, moves all extremities Results - Labs CBC & Chem 7: 06/10/18 05:49 06/10/18 05:49 Labs: Laboratory Last Values WBC 7.6 K/mm3 (4.5-11.0) 06/10/18 05:49 RBC 3.63 M/mm3 (3.65-5.03) L 06/10/18 05:49 Hgb 11.0 gm/dl (11.8-15.2) L 06/10/18 05:49 Hct 33.1 % (35.5-45.6) L 06/10/18 05:49 MCV 91 fl (84-94) 06/10/18 05:49 MCH 30 pg (28-32) 06/10/18 05:49 MCHC 33 % (32-34) 06/10/18 05:49 RDW 15.2 % (13.2-15.2) 06/10/18 05:49 Plt Count 443 K/mm3 (140-440) H 06/10/18 05:49 Lymph % (Auto) 17.2 % (13.4-35.0) 06/10/18 05:49 [place] % (Auto) 9.5 % (0.0-7.3) H 06/10/18 05:49 Eos % (Auto) 2.0 % (0.0-4.3) 06/10/18 05:49 Baso % (Auto) 0.4 % (0.0-1.8) 06/10/18 05:49 Lymph # 1.3 K/mm3 (1.2-5.4) 06/10/18 05:49 [place] # 0.7 K/mm3 (0.0-0.8) 06/10/18 05:49 Eos # 0.2 K/mm3 (0.0-0.4) 06/10/18 05:49 Baso # 0.0 K/mm3 (0.0-0.1) 06/10/18 05:49 Add Manual Diff Complete 06/08/18 05:08 Seg Neutrophils % 70.9 % (40.0-70.0) H 06/10/18 05:49 Seg Neutrophils # 5.3 K/mm3 (1.8-7.7) 06/10/18 05:49 PT 14.7 Sec. (12.2-14.9) 06/04/18 12:28 INR 1.09 (0.87-1.13) 06/04/18 12:28 APTT 29.0 Sec. (24.2-36.6) 06/04/18 12:28 Sodium 147 mmol/L (137-145) H 06/10/18 05:49 Potassium 3.5 mmol/L (3.6-5.0) L 06/10/18 05:49 Chloride 112.6 mmol/L (98-107) H 06/10/18 05:49 Carbon Dioxide 23 mmol/L (22-30) 06/10/18 05:49 Anion Gap 15 mmol/L 06/10/18 05:49 BUN 7 mg/dL (9-20) L 06/10/18 05:49 Creatinine 0.8 mg/dL (0.8-1.5) 06/10/18 05:49 Estimated GFR > 60 ml/min 06/10/18 05:49 BUN/Creatinine Ratio 9 % 06/10/18 05:49 Glucose 154 mg/dL (75-100) H 06/10/18 05:49 POC Glucose 137 (70-105) H 06/10/18 07:41 Lactic Acid 1.40 mmol/L (0.7-2.0) 06/04/18 23:18 Calcium 8.3 mg/dL (8.4-10.2) L 06/10/18 05:49 Magnesium 2.50 mg/dL (1.7-2.3) H 06/09/18 07:54 Total Bilirubin 0.40 mg/dL (0.1-1.2) 06/04/18 12:28 AST 48 units/L (5-40) H 06/07/18 04:34 ALT 38 units/L (7-56) 06/07/18 04:34 Alkaline Phosphatase 32 units/L (35-129) L 06/04/18 12:28 Ammonia 57.0 umol/L (25-60) 06/06/18 10:23 Troponin T < 0.010 ng/mL (0.00-0.029) 06/04/18 12:28 Total Protein 7.7 g/dL (6.3-8.2) 06/04/18 12:28 Albumin 4.2 g/dL (3.9-5) 06/04/18 12:28 Albumin/Globulin Ratio 1.2 % 06/04/18 12:28 TSH 0.794 mlU/mL (0.270-4.200) 06/04/18 12:28 Urine Color Yellow (Yellow) 06/06/18 13:00 Urine Turbidity Slightly-cloudy (Clear) 06/06/18 13:00 Urine pH 5.0 (5.0-7.0) 06/06/18 13:00 Ur Specific [place] 1.018 (1.003-1.030) 06/06/18 13:00 Urine Protein <15 mg/dl mg/dL (Negative) 06/06/18 13:00 Urine Glucose (UA) Neg mg/dL (Negative) 06/06/18 13:00 Urine Ketones 20 mg/dL (Negative) 06/06/18 13:00 Urine Blood Neg (Negative) 06/06/18 13:00 Urine Nitrite Neg (Negative) 06/06/18 13:00 Urine Bilirubin Neg (Negative) 06/06/18 13:00 Urine Urobilinogen 2.0 mg/dL (<2.0) 06/06/18 13:00 Ur Leukocyte Esterase Neg (Negative) 06/06/18 13:00 Urine WBC (Auto) 3.0 /HPF (0.0-6.0) 06/06/18 13:00 Urine RBC (Auto) 1.0 /HPF (0.0-6.0) 06/06/18 13:00 U Epithel Cells (Auto) 1.0 /HPF (0-13.0) 06/06/18 13:00 Urine Bacteria (Auto) 1+ /HPF (Negative) 06/04/18 18:41 Uric Acid Crystals Few 06/06/18 13:00 Hyaline Casts 10 /LPF 06/04/18 18:41 Urine Mucus Few /HPF 06/04/18 18:41 Urine Creatinine 144.6 mg/dL (0.1-20.0) H 06/06/18 13:00 Urine Sodium 38 mmol/L 06/06/18 13:00 Urine Opiates Screen Presumptive negative 06/04/18 18:41 Urine Methadone Screen Presumptive negative 06/04/18 18:41 Ur Barbiturates Screen Presumptive negative 06/04/18 18:41 Valproic Acid 60.5 ug/mL (50-100) 06/07/18 13:40 Ur Phencyclidine Scrn Presumptive negative 06/04/18 18:41 Ur Amphetamines Screen Presumptive negative 06/04/18 18:41 U Benzodiazepines Scrn Presumptive negative 06/04/18 18:41 Urine Cocaine Screen Presumptive negative 06/04/18 18:41 U Marijuana (THC) Screen Presumptive negative 06/04/18 18:41 Drugs of Abuse Note Disclamer 06/04/18 18:41 Plasma/Serum Alcohol < 0.01 % (0-0.07) 06/04/18 12:28
[2018-06-10] MEDS: ZOLOFT PO SCH (10:12)
[2018-06-10] MEDS: TRICOR PO SCH (10:12)
[2018-06-10] MEDS: NORVASC PO SCH (10:13)
[2018-06-10] MEDS: POTASSIUM CHLORIDE PO SCH (10:13)
[2018-06-10] MEDS: ZESTRIL PO SCH (10:13)
[2018-06-10] MEDS: COLACE PO SCH ×2 (10:13→21:35)
[2018-06-10] MEDS: HALFPRIN EC PO SCH (10:13)
[2018-06-10] MEDS: APRESOLINE IV PRN (10:18)
--- NOTE | 2018-06-10 10:22 | Progress Note ---
Subjective - Reason for Consult Consult date: 06/10/18 Reason for consult: Psychiatry Follow-up - Chief Complaint Chief complaint: "The patent is confused" 53-year-old male with history of hypertension diabetes as well as schizoaffective disorder now presenting secondary to persistent confusion. The patient was recently at [facility] and transferred to ER for the evaluation of mental status changes. Today the patient is confused with incoherent speech during the assessment. Also, he was in restraints. The patient answers to questions were not logical. The patient still could not provide meaningful information. No gestures of SI/HI's. Mental Status Exam - Vital signs Last Vital Signs Temp 98.7 F 06/10/18 06:26 Pulse 118 H 06/10/18 06:26 Resp 20 06/10/18 06:26 BP 156/107 06/10/18 10:18 Pulse Ox 95 06/10/18 06:26 - Exam Narrative exam: Unable to complete the MSE because of the patient's condition. Assessment and Plan Impression: Delirium. Today the patient is confused with incoherent speech during the assessment. NA 147. Ammonia 70. DDx: Toxic Metabolic Encephalopathy. Recommendation/Plan: Continue Haldol 5 mg IM Q6hrs PRN for acute agitation. Order VA in the AM 10. The patient's ammonia level is elevated and his assigned nurse was informed. Recommend delirium precautions below: 1. Frequently reorient patient and involve him/her in their care (simple explanations of procedures, tests, medications). 2. Lights on and shades open during daytime hours. 3. Write date and goals of care in a visible place. 4. Try to avoid unnecessary interruptions to sleep during nighttime hours. 5. Obtain glasses, hearing aids from home if patient uses these at baseline. 6. Avoid medications that may exacerbate delirium (especially narcotics, benzodiazepines, barbiturates, ambien, lunesta, and medications with excessive anticholinergic properties). Will be staffed with Dr. Harvey Thao.
[2018-06-10 11:23] LABS: Alanine Aminotransferase 25 units/L (7-56); Lipase 51 units/L (13-60)
[2018-06-10] MEDS: SODIUM CHLORIDE FLUSH SYRINGE 10 ML IV SCH ×2 (14:26→21:35)
[2018-06-10] MEDS: KCL 20 MEQ in D5W 1,000 ML IV SCH (19:11)
[2018-06-10] MEDS: CEPHULAC PO SCH ×2 (19:49→20:03)
[2018-06-10] MEDS: HALDOL IM PRN (20:03)
[2018-06-11] MEDS: KCL 20 MEQ in D5W 1,000 ML IV SCH ×2 (05:30→14:45)
[2018-06-11] MEDS: NACL 0.9% IV SCH ×3 (05:30→22:17)
[2018-06-11] MEDS: DEPACON IV SCH ×3 (05:30→22:17)
[2018-06-11 05:41] LABS: BUN/Creatinine Ratio 8; Blood Urea Nitrogen 5 mg/dL (9-20); Calcium 8.2 mg/dL (8.4-10.2); Hemolysis Index 2
[2018-06-11] MEDS: CEPHULAC PO SCH ×3 (08:46→22:18)
--- NOTE | 2018-06-11 09:00 | Progress Note ---
Assessment and Plan Impression: * Hypernatremia * dehydration * Schizoaffective disorder * AMS Plan: * Hypernatremia has been corrected * Continue IV fluid with Potassium * Keep him on IV fluid until he starts to eat * mag level is 2.5 * daily lytes * strict i/os * increase free H20 intake * Off HCTZ * Shall follow him peripherally Subjective Date of service: 06/11/18 Principal diagnosis: hypernatremia Interval history: patient is awake and alert . Currently on restraints . Remains NPO Objective - Vital Signs Vital signs: Vital Signs - 12hr 06/11/18 06/11/18 00:22 06:03 Temperature 98.6 F 98.2 F Pulse Rate 97 H 89 Respiratory 20 20 Rate Blood Pressure 148/93 161/101 O2 Sat by Pulse 96 96 Oximetry - General Appearance General appearance: well-developed, well-nourished, appears stated age EENT: PERRL, mucous membranes moist Neck: no JVD, no thyromegaly, no carotid bruit, supple Respiratory: Present: Clear to Ascultation Cardiology: regular, normal heart rate, S1S2, no murmurs Gastrointestinal: normal, normoactive bowel sounds Integumentary: no rash, other (no edema ) - Lab 06/10/18 05:49 06/11/18 04:43 Most recent lab results Calcium 8.2 mg/dL (8.4-10.2) L 06/11/18 04:43 Magnesium 2.50 mg/dL (1.7-2.3) H 06/09/18 07:54 Urine Creatinine 144.6 mg/dL (0.1-20.0) H 06/06/18 13:00 Urine Sodium 38 mmol/L 06/06/18 13:00
[2018-06-11] MEDS: COLACE PO SCH (10:13)
[2018-06-11] MEDS: ZOLOFT PO SCH (10:13)
[2018-06-11] MEDS: NORVASC PO SCH (10:14)
[2018-06-11] MEDS: POTASSIUM CHLORIDE PO SCH (10:14)
[2018-06-11] MEDS: ZESTRIL PO SCH (10:14)
[2018-06-11] MEDS: TRICOR PO SCH (10:14)
[2018-06-11] MEDS: HALFPRIN EC PO SCH (10:14)
--- NOTE | 2018-06-11 10:59 | Progress Note ---
Subjective - Reason for Consult Consult date: 06/11/18 Reason for consult: Psychiatry Follow-up - Chief Complaint Chief complaint: "The patent is confused" 53-year-old male with history of hypertension diabetes as well as schizoaffective disorder now presenting secondary to persistent confusion. The patient was recently at [facility] and transferred to ER for the evaluation of mental status changes. Today the patient is calm and cooperative during the assessment. The patient has been pleasant per his assigned nurse. Per collateral information from his sister Barbara Love at [phone] stated that her brother is seen at [facility] for outpatient psy services. The patient denies Si/HI's and AVH's. He denies any side effects of he medications. Mental Status Exam - Vital signs Last Vital Signs Temp 98.2 F 06/11/18 06:03 Pulse 89 06/11/18 10:14 Resp 20 06/11/18 06:03 BP 161/101 06/11/18 10:14 Pulse Ox 96 06/11/18 06:03 - Exam Narrative exam: MSE: Appearance: calm, cooperative Behavior: regular eye contact Speech: regular rate and tone Mood: "okay" Affect: congruent to mood Thought Process: circumstantial Thought Content: denies SI/HI's and AVH's Motor Activity: sitting up in the bed Cognition: A/O x 3 Insight: fair Judgment: fair Assessment and Plan Impression: Hx of Mood DO. Today the patient is calm and cooperative during the assessment. The patient isn't in restraints. The patient's delirium has resolved. DDx: Toxic Metabolic Encephalopathy. Recommendation/Plan: The patient can follow up with [facility] for outpatient psy services. Continue Zoloft 150 mg PO daily. Discussed possible suicidality/medication induced sky with patient reference Zoloft. Psy sign off. Will be staffed with Dr. Harvey Thao.
--- NOTE | 2018-06-11 12:13 | Progress Note ---
Assessment and Plan Assessment and plan: Sepsis. Continue IV antibiotics. Continue IV antibiotics of Zosyn. Toxic metabolic encephalopathy. Improving, Neurology following. CT scan of head negative. Follow-up neurochecks, EEG suggestive of metabolic dysfunction. Continue to treat underlying causes. Hypernatremia. Now resolved. Sodium 141 today. HCTZ on hold. Follow-up BMP in a.m. Nephrology following Hypertension. Psychosis/schizoaffective disorder. Mental health evaluation. History Interval history: More alert, Asking for food Hospitalist Physical - Physical exam Narrative exam: GEN: Not in acute distress, lying in bed HEENT: Normocephalic, atraumatic, Neck: supple, No JVD Lungs: Clear to auscultation bilaterally, no crackles, no wheeze Heart:S1 and S2 regular, no murmurs, rubs or gallop, Abd:soft, non-tender, non-distended, normal bowel sounds Ext: No edema, no clubbing, no cyanosis Neuro: Awake,more alert, oriented x 3, no focal signs - Constitutional Vitals: Temp Pulse Resp BP Pulse Ox 98.2 F 89 20 161/101 96 06/11/18 06:03 06/11/18 10:14 06/11/18 06:03 06/11/18 10:14 06/11/18 06:03 General appearance: Present: no acute distress Results - Labs CBC & Chem 7: 06/10/18 05:49 06/11/18 04:43 Labs: Laboratory Last Values WBC 7.6 K/mm3 (4.5-11.0) 06/10/18 05:49 RBC 3.63 M/mm3 (3.65-5.03) L 06/10/18 05:49 Hgb 11.0 gm/dl (11.8-15.2) L 06/10/18 05:49 Hct 33.1 % (35.5-45.6) L 06/10/18 05:49 MCV 91 fl (84-94) 06/10/18 05:49 MCH 30 pg (28-32) 06/10/18 05:49 MCHC 33 % (32-34) 06/10/18 05:49 RDW 15.2 % (13.2-15.2) 06/10/18 05:49 Plt Count 443 K/mm3 (140-440) H 06/10/18 05:49 Lymph % (Auto) 17.2 % (13.4-35.0) 06/10/18 05:49 [place] % (Auto) 9.5 % (0.0-7.3) H 06/10/18 05:49 Eos % (Auto) 2.0 % (0.0-4.3) 06/10/18 05:49 Baso % (Auto) 0.4 % (0.0-1.8) 06/10/18 05:49 Lymph # 1.3 K/mm3 (1.2-5.4) 06/10/18 05:49 [place] # 0.7 K/mm3 (0.0-0.8) 06/10/18 05:49 Eos # 0.2 K/mm3 (0.0-0.4) 06/10/18 05:49 Baso # 0.0 K/mm3 (0.0-0.1) 06/10/18 05:49 Add Manual Diff Complete 06/08/18 05:08 Seg Neutrophils % 70.9 % (40.0-70.0) H 06/10/18 05:49 Seg Neutrophils # 5.3 K/mm3 (1.8-7.7) 06/10/18 05:49 PT 14.7 Sec. (12.2-14.9) 06/04/18 12:28 INR 1.09 (0.87-1.13) 06/04/18 12:28 APTT 29.0 Sec. (24.2-36.6) 06/04/18 12:28 Sodium 141 mmol/L (137-145) 06/11/18 04:43 Potassium 3.4 mmol/L (3.6-5.0) L 06/11/18 04:43 Chloride 109.2 mmol/L (98-107) H 06/11/18 04:43 Carbon Dioxide 23 mmol/L (22-30) 06/11/18 04:43 Anion Gap 12 mmol/L 06/11/18 04:43 BUN 5 mg/dL (9-20) L 06/11/18 04:43 Creatinine 0.6 mg/dL (0.8-1.5) L 06/11/18 04:43 Estimated GFR > 60 ml/min 06/11/18 04:43 BUN/Creatinine Ratio 8 % 06/11/18 04:43 Glucose 134 mg/dL (75-100) H 06/11/18 04:43 POC Glucose 212 (70-105) H 06/11/18 11:17 Lactic Acid 1.40 mmol/L (0.7-2.0) 06/04/18 23:18 Calcium 8.2 mg/dL (8.4-10.2) L 06/11/18 04:43 Magnesium 2.50 mg/dL (1.7-2.3) H 06/09/18 07:54 Total Bilirubin 0.40 mg/dL (0.1-1.2) 06/04/18 12:28 AST 31 units/L (5-40) 06/10/18 10:47 ALT 25 units/L (7-56) 06/10/18 10:47 Alkaline Phosphatase 27 units/L (35-129) L 06/10/18 10:47 Ammonia 70.0 umol/L (25-60) H 06/10/18 10:42 Troponin T < 0.010 ng/mL (0.00-0.029) 06/04/18 12:28 Total Protein 7.7 g/dL (6.3-8.2) 06/04/18 12:28 Albumin 4.2 g/dL (3.9-5) 06/04/18 12:28 Albumin/Globulin Ratio 1.2 % 06/04/18 12:28 Amylase 47 units/L (27-131) 06/10/18 10:47 Lipase 51 units/L (13-60) 06/10/18 10:47 TSH 0.794 mlU/mL (0.270-4.200) 06/04/18 12:28 Urine Color Yellow (Yellow) 06/06/18 13:00 Urine Turbidity Slightly-cloudy (Clear) 06/06/18 13:00 Urine pH 5.0 (5.0-7.0) 06/06/18 13:00 Ur Specific [place] 1.018 (1.003-1.030) 06/06/18 13:00 Urine Protein <15 mg/dl mg/dL (Negative) 06/06/18 13:00 Urine Glucose (UA) Neg mg/dL (Negative) 06/06/18 13:00 Urine Ketones 20 mg/dL (Negative) 06/06/18 13:00 Urine Blood Neg (Negative) 06/06/18 13:00 Urine Nitrite Neg (Negative) 06/06/18 13:00 Urine Bilirubin Neg (Negative) 06/06/18 13:00 Urine Urobilinogen 2.0 mg/dL (<2.0) 06/06/18 13:00 Ur Leukocyte Esterase Neg (Negative) 06/06/18 13:00 Urine WBC (Auto) 3.0 /HPF (0.0-6.0) 06/06/18 13:00 Urine RBC (Auto) 1.0 /HPF (0.0-6.0) 06/06/18 13:00 U Epithel Cells (Auto) 1.0 /HPF (0-13.0) 06/06/18 13:00 Urine Bacteria (Auto) 1+ /HPF (Negative) 06/04/18 18:41 Uric Acid Crystals Few 06/06/18 13:00 Hyaline Casts 10 /LPF 06/04/18 18:41 Urine Mucus Few /HPF 06/04/18 18:41 Urine Creatinine 144.6 mg/dL (0.1-20.0) H 06/06/18 13:00 Urine Sodium 38 mmol/L 06/06/18 13:00 Urine Opiates Screen Presumptive negative 06/04/18 18:41 Urine Methadone Screen Presumptive negative 06/04/18 18:41 Ur Barbiturates Screen Presumptive negative 06/04/18 18:41 Valproic Acid 76.3 ug/mL (50-100) 06/11/18 04:43 Ur Phencyclidine Scrn Presumptive negative 06/04/18 18:41 Ur Amphetamines Screen Presumptive negative 06/04/18 18:41 U Benzodiazepines Scrn Presumptive negative 06/04/18 18:41 Urine Cocaine Screen Presumptive negative 06/04/18 18:41 U Marijuana (THC) Screen Presumptive negative 06/04/18 18:41 Drugs of Abuse Note Disclamer 06/04/18 18:41 Plasma/Serum Alcohol < 0.01 % (0-0.07) 06/04/18 12:28
[2018-06-11] MEDS ORDERED: ATIVAN IV ONE (13:33)
--- NOTE | 2018-06-11 14:36 | Magnetic Resonance Report ---
MRI BRAIN WITHOUT CONTRAST: 06/04/18 17:43:00 CLINICAL: Right-sided weakness. TECHNIQUE: Axial diffusion, T1, T2, gradient echo T2*, coronal and axial FLAIR and sagittal T1 sequences on a 1.5 [place] magnet. FINDINGS: The frontal and temporal lobe sulci are slightly large for age. The ventricles are normal size. No restricted diffusion and no abnormal signal on any sequence. No mass or mass effect. No hemorrhage, edema or extra-axial collection. No chronic micro-bleeds on the gradient echo sequence. Normal pituitary and optic chiasm. The brainstem and cerebellum are normal. Intact vascular flow voids. Normal sinuses. The orbits, and soft tissues are normal. Normal calvarium and skull base. IMPRESSION: Mild cortical atrophy. No evidence of acute/subacute infarct or hemorrhage.
[2018-06-11] MEDS: SODIUM CHLORIDE FLUSH SYRINGE 10 ML IV SCH (14:45)
[2018-06-11] MEDS: HALDOL IM PRN (22:18)
[2018-06-12] MEDS: KCL 20 MEQ in D5W 1,000 ML IV SCH ×2 (00:22→05:23)
[2018-06-12] MEDS: SODIUM CHLORIDE FLUSH SYRINGE 10 ML IV SCH ×3 (04:04→23:02)
[2018-06-12] MEDS: COLACE PO SCH ×3 (04:04→23:00)
[2018-06-12] MEDS: DEPACON IV SCH (05:21)
[2018-06-12] MEDS: NACL 0.9% IV SCH (05:21)
[2018-06-12] MEDS: APRESOLINE PO SCH ×3 (05:51→23:01)
[2018-06-12 08:10] LABS: BUN/Creatinine Ratio 5; Blood Urea Nitrogen 3 mg/dL (9-20); Calcium 8.6 mg/dL (8.4-10.2); Hemolysis Index 77
[2018-06-12] MEDS: TRICOR PO SCH (09:36)
[2018-06-12] MEDS: HALFPRIN EC PO SCH (09:36)
[2018-06-12] MEDS: CEPHULAC PO SCH ×3 (09:37→23:00)
[2018-06-12] MEDS: ZOLOFT PO SCH (09:37)
[2018-06-12] MEDS: NORVASC PO SCH (09:37)
[2018-06-12] MEDS: POTASSIUM CHLORIDE PO SCH (09:38)
[2018-06-12] MEDS: ZESTRIL PO SCH (09:38)
--- NOTE | 2018-06-12 11:00 | Discharge Summary ---
Providers - Providers Date of Admission: 06/04/18 17:43 Date of discharge: 06/12/18 Attending physician: JUMANA MURRIETA 06/05/18 07:52 Consult to Mental Health [CONS] Routine Reason For Exam: psychosis Place consult to:: mental health Notified:: Phone number called:: [phone] Was contact made?: Yes If yes, spoke with:: domanic Time called:: 10:26 06/05/18 12:39 Consult to Physician [CONS] Routine Comment: Consulting Provider: BABAR BASURTO Physician Instructions: Reason For Exam: AMS, 06/06/18 12:25 Consult to Physician [CONS] Routine Comment: spoke with DR HERNANDEZ Consulting Provider: FLO LEWIS Physician Instructions: consult DR LEWIS Reason For Exam: high sodium 06/06/18 16:00 Consult to Wound/ET Nurse [CONS] Routine Reason For Exam: wound eval 06/07/18 10:33 Physical Therapy Evaluation and Treat [CONS] Routine Comment: Reason For Exam: RT HEMIPARESIS Primary care physician: SALES DEVELOPMENT REPRESENTATIVE Hospitalization Condition: Fair Disposition: DC-01 TO HOME OR SELFCARE Core Measure Documentation - Palliative Care Palliative Care/ Comfort Measures: Not Applicable - Core Measures Any of the following diagnoses?: none Exam - Constitutional Vitals: Temp Pulse Resp BP Pulse Ox 97.7 F 87 18 153/96 98 06/12/18 05:52 06/12/18 05:52 06/12/18 05:52 06/12/18 05:52 06/12/18 05:52 Plan Activity: advance as tolerated Diet: low fat, low cholesterol, low salt Additional Instructions: 1.Follow up with PCP or [facility] in 1 week. 2.Follow up with Neurologst in 1 week Follow up with: PRIMARY CARE, [Primary Care Provider] - 7 Days Prescriptions: hydrALAZINE [Apresoline TAB] 50 mg PO Q8HR 30 Days tablet Lactulose [Cephulac] 20 gm PO BID 7 Days oral.liqd Valproic Acid [Depakene] 750 mg PO Q8HR 30 Days capsule
--- NOTE | 2018-06-12 22:42 | Progress Note ---
Assessment and Plan Assessment and plan: Sepsis. Continue IV antibiotics. Continue IV antibiotics of Zosyn. Toxic metabolic encephalopathy. Improving, Neurology following. CT scan of head negative. Follow-up neurochecks, EEG suggestive of metabolic dysfunction. Continue to treat underlying causes. Hypernatremia. Now resolved. Sodium 141. HCTZ on hold. Hypertension. Psychosis/schizoaffective disorder. Mental health evaluation. Patient stable for discharge. History Interval history: More alert, No chest pain Hospitalist Physical - Physical exam Narrative exam: GEN: Not in acute distress, lying in bed HEENT: Normocephalic, atraumatic, Neck: supple, No JVD Lungs: Clear to auscultation bilaterally, no crackles, no wheeze Heart:S1 and S2 regular, no murmurs, rubs or gallop, Abd:soft, non-tender, non-distended, normal bowel sounds Ext: No edema, no clubbing, no cyanosis Neuro: Awake,more alert, oriented x 3, no focal signs - Constitutional Vitals: Temp Pulse Resp BP Pulse Ox 98.4 F 106 H 20 129/87 97 06/12/18 17:02 06/12/18 17:02 06/12/18 17:02 06/12/18 17:02 06/12/18 17:02 General appearance: Present: no acute distress Results - Labs CBC & Chem 7: 06/10/18 05:49 06/13/18 04:06 Labs: Laboratory Last Values WBC 7.6 K/mm3 (4.5-11.0) 06/10/18 05:49 RBC 3.63 M/mm3 (3.65-5.03) L 06/10/18 05:49 Hgb 11.0 gm/dl (11.8-15.2) L 06/10/18 05:49 Hct 33.1 % (35.5-45.6) L 06/10/18 05:49 MCV 91 fl (84-94) 06/10/18 05:49 MCH 30 pg (28-32) 06/10/18 05:49 MCHC 33 % (32-34) 06/10/18 05:49 RDW 15.2 % (13.2-15.2) 06/10/18 05:49 Plt Count 443 K/mm3 (140-440) H 06/10/18 05:49 Lymph % (Auto) 17.2 % (13.4-35.0) 06/10/18 05:49 [place] % (Auto) 9.5 % (0.0-7.3) H 06/10/18 05:49 Eos % (Auto) 2.0 % (0.0-4.3) 06/10/18 05:49 Baso % (Auto) 0.4 % (0.0-1.8) 06/10/18 05:49 Lymph # 1.3 K/mm3 (1.2-5.4) 06/10/18 05:49 [place] # 0.7 K/mm3 (0.0-0.8) 06/10/18 05:49 Eos # 0.2 K/mm3 (0.0-0.4) 06/10/18 05:49 Baso # 0.0 K/mm3 (0.0-0.1) 06/10/18 05:49 Add Manual Diff Complete 06/08/18 05:08 Seg Neutrophils % 70.9 % (40.0-70.0) H 06/10/18 05:49 Seg Neutrophils # 5.3 K/mm3 (1.8-7.7) 06/10/18 05:49 PT 14.7 Sec. (12.2-14.9) 06/04/18 12:28 INR 1.09 (0.87-1.13) 06/04/18 12:28 APTT 29.0 Sec. (24.2-36.6) 06/04/18 12:28 Sodium 139 mmol/L (137-145) 06/12/18 07:35 Potassium 3.8 mmol/L (3.6-5.0) 06/12/18 07:35 Chloride 104.3 mmol/L (98-107) 06/12/18 07:35 Carbon Dioxide 21 mmol/L (22-30) L 06/12/18 07:35 Anion Gap 18 mmol/L 06/12/18 07:35 BUN 3 mg/dL (9-20) L 06/12/18 07:35 Creatinine 0.6 mg/dL (0.8-1.5) L 06/12/18 07:35 Estimated GFR > 60 ml/min 06/12/18 07:35 BUN/Creatinine Ratio 5 % 06/12/18 07:35 Glucose 146 mg/dL (75-100) H 06/12/18 07:35 POC Glucose 162 (70-105) H 06/12/18 16:22 Lactic Acid 1.40 mmol/L (0.7-2.0) 06/04/18 23:18 Calcium 8.6 mg/dL (8.4-10.2) 06/12/18 07:35 Magnesium 2.50 mg/dL (1.7-2.3) H 06/09/18 07:54 Total Bilirubin 0.40 mg/dL (0.1-1.2) 06/04/18 12:28 AST 31 units/L (5-40) 06/10/18 10:47 ALT 25 units/L (7-56) 06/10/18 10:47 Alkaline Phosphatase 27 units/L (35-129) L 06/10/18 10:47 Ammonia 70.0 umol/L (25-60) H 06/10/18 10:42 Troponin T < 0.010 ng/mL (0.00-0.029) 06/04/18 12:28 Total Protein 7.7 g/dL (6.3-8.2) 06/04/18 12:28 Albumin 4.2 g/dL (3.9-5) 06/04/18 12:28 Albumin/Globulin Ratio 1.2 % 06/04/18 12:28 Amylase 47 units/L (27-131) 06/10/18 10:47 Lipase 51 units/L (13-60) 06/10/18 10:47 TSH 0.794 mlU/mL (0.270-4.200) 06/04/18 12:28 Urine Color Yellow (Yellow) 06/06/18 13:00 Urine Turbidity Slightly-cloudy (Clear) 06/06/18 13:00 Urine pH 5.0 (5.0-7.0) 06/06/18 13:00 Ur Specific [place] 1.018 (1.003-1.030) 06/06/18 13:00 Urine Protein <15 mg/dl mg/dL (Negative) 06/06/18 13:00 Urine Glucose (UA) Neg mg/dL (Negative) 06/06/18 13:00 Urine Ketones 20 mg/dL (Negative) 06/06/18 13:00 Urine Blood Neg (Negative) 06/06/18 13:00 Urine Nitrite Neg (Negative) 06/06/18 13:00 Urine Bilirubin Neg (Negative) 06/06/18 13:00 Urine Urobilinogen 2.0 mg/dL (<2.0) 06/06/18 13:00 Ur Leukocyte Esterase Neg (Negative) 06/06/18 13:00 Urine WBC (Auto) 3.0 /HPF (0.0-6.0) 06/06/18 13:00 Urine RBC (Auto) 1.0 /HPF (0.0-6.0) 06/06/18 13:00 U Epithel Cells (Auto) 1.0 /HPF (0-13.0) 06/06/18 13:00 Urine Bacteria (Auto) 1+ /HPF (Negative) 06/04/18 18:41 Uric Acid Crystals Few 06/06/18 13:00 Hyaline Casts 10 /LPF 06/04/18 18:41 Urine Mucus Few /HPF 06/04/18 18:41 Urine Creatinine 144.6 mg/dL (0.1-20.0) H 06/06/18 13:00 Urine Sodium 38 mmol/L 06/06/18 13:00 Urine Opiates Screen Presumptive negative 06/04/18 18:41 Urine Methadone Screen Presumptive negative 06/04/18 18:41 Ur Barbiturates Screen Presumptive negative 06/04/18 18:41 Valproic Acid 76.3 ug/mL (50-100) 06/11/18 04:43 Ur Phencyclidine Scrn Presumptive negative 06/04/18 18:41 Ur Amphetamines Screen Presumptive negative 06/04/18 18:41 U Benzodiazepines Scrn Presumptive negative 06/04/18 18:41 Urine Cocaine Screen Presumptive negative 06/04/18 18:41 U Marijuana (THC) Screen Presumptive negative 06/04/18 18:41 Drugs of Abuse Note Disclamer 06/04/18 18:41 Plasma/Serum Alcohol < 0.01 % (0-0.07) 06/04/18 12:28
[2018-06-12] MEDS: TYLENOL PO PRN (23:04)
[2018-06-13] MEDS: HALDOL IM PRN (02:36)
[2018-06-13 05:14] LABS: BUN/Creatinine Ratio 9; Blood Urea Nitrogen 6 mg/dL (9-20); Hemolysis Index 1
[2018-06-13] MEDS: APRESOLINE PO SCH ×3 (06:33→21:47)
[2018-06-13] MEDS: ZOLOFT PO SCH (10:57)
[2018-06-13] MEDS: TRICOR PO SCH (10:58)
[2018-06-13] MEDS: NORVASC PO SCH (10:58)
[2018-06-13] MEDS: COLACE PO SCH ×2 (10:58→21:48)
[2018-06-13] MEDS: HALFPRIN EC PO SCH (10:58)
[2018-06-13] MEDS: ZESTRIL PO SCH (10:58)
[2018-06-13] MEDS: POTASSIUM CHLORIDE PO SCH (10:59)
[2018-06-13] MEDS: SODIUM CHLORIDE FLUSH SYRINGE 10 ML IV SCH ×2 (11:00→21:48)
[2018-06-13] MEDS: CEPHULAC PO SCH ×2 (11:03→15:09)
--- NOTE | 2018-06-13 11:11 | Progress Note ---
Assessment and Plan Assessment and plan: Sepsis. Continue IV antibiotics. Continue IV antibiotics of Zosyn. Toxic metabolic encephalopathy. Improving, Neurology following. CT scan of head negative. Follow-up neurochecks, EEG suggestive of metabolic dysfunction. Continue to treat underlying causes. Hypernatremia. Now resolved. Sodium 141. HCTZ on hold. Hypertension. Psychosis/schizoaffective disorder. Mental health evaluation. Patient stable for discharge. History Interval history: More alert, No chest pain Hospitalist Physical - Physical exam Narrative exam: GEN: Not in acute distress, lying in bed HEENT: Normocephalic, atraumatic, Neck: supple, No JVD Lungs: Clear to auscultation bilaterally, no crackles, no wheeze Heart:S1 and S2 regular, no murmurs, rubs or gallop, Abd:soft, non-tender, non-distended, normal bowel sounds Ext: No edema, no clubbing, no cyanosis Neuro: Awake,more alert, oriented x 3, no focal signs - Constitutional Vitals: Temp Pulse Resp BP Pulse Ox 98.0 F 90 16 160/84 97 06/13/18 06:30 06/13/18 06:30 06/13/18 06:30 06/13/18 06:30 06/13/18 06:30 General appearance: Present: no acute distress Results - Labs CBC & Chem 7: 06/10/18 05:49 06/13/18 04:06 Labs: Laboratory Last Values WBC 7.6 K/mm3 (4.5-11.0) 06/10/18 05:49 RBC 3.63 M/mm3 (3.65-5.03) L 06/10/18 05:49 Hgb 11.0 gm/dl (11.8-15.2) L 06/10/18 05:49 Hct 33.1 % (35.5-45.6) L 06/10/18 05:49 MCV 91 fl (84-94) 06/10/18 05:49 MCH 30 pg (28-32) 06/10/18 05:49 MCHC 33 % (32-34) 06/10/18 05:49 RDW 15.2 % (13.2-15.2) 06/10/18 05:49 Plt Count 443 K/mm3 (140-440) H 06/10/18 05:49 Lymph % (Auto) 17.2 % (13.4-35.0) 06/10/18 05:49 [place] % (Auto) 9.5 % (0.0-7.3) H 06/10/18 05:49 Eos % (Auto) 2.0 % (0.0-4.3) 06/10/18 05:49 Baso % (Auto) 0.4 % (0.0-1.8) 06/10/18 05:49 Lymph # 1.3 K/mm3 (1.2-5.4) 06/10/18 05:49 [place] # 0.7 K/mm3 (0.0-0.8) 06/10/18 05:49 Eos # 0.2 K/mm3 (0.0-0.4) 06/10/18 05:49 Baso # 0.0 K/mm3 (0.0-0.1) 06/10/18 05:49 Add Manual Diff Complete 06/08/18 05:08 Seg Neutrophils % 70.9 % (40.0-70.0) H 06/10/18 05:49 Seg Neutrophils # 5.3 K/mm3 (1.8-7.7) 06/10/18 05:49 PT 14.7 Sec. (12.2-14.9) 06/04/18 12:28 INR 1.09 (0.87-1.13) 06/04/18 12:28 APTT 29.0 Sec. (24.2-36.6) 06/04/18 12:28 Sodium 141 mmol/L (137-145) 06/13/18 04:06 Potassium 3.7 mmol/L (3.6-5.0) 06/13/18 04:06 Chloride 104.4 mmol/L (98-107) 06/13/18 04:06 Carbon Dioxide 23 mmol/L (22-30) 06/13/18 04:06 Anion Gap 17 mmol/L 06/13/18 04:06 BUN 6 mg/dL (9-20) L 06/13/18 04:06 Creatinine 0.7 mg/dL (0.8-1.5) L 06/13/18 04:06 Estimated GFR > 60 ml/min 06/13/18 04:06 BUN/Creatinine Ratio 9 % 06/13/18 04:06 Glucose 121 mg/dL (75-100) H 06/13/18 04:06 POC Glucose 162 (70-105) H 06/12/18 16:22 Lactic Acid 1.40 mmol/L (0.7-2.0) 06/04/18 23:18 Calcium 9.0 mg/dL (8.4-10.2) 06/13/18 04:06 Magnesium 2.50 mg/dL (1.7-2.3) H 06/09/18 07:54 Total Bilirubin 0.40 mg/dL (0.1-1.2) 06/04/18 12:28 AST 31 units/L (5-40) 06/10/18 10:47 ALT 25 units/L (7-56) 06/10/18 10:47 Alkaline Phosphatase 27 units/L (35-129) L 06/10/18 10:47 Ammonia 70.0 umol/L (25-60) H 06/10/18 10:42 Troponin T < 0.010 ng/mL (0.00-0.029) 06/04/18 12:28 Total Protein 7.7 g/dL (6.3-8.2) 06/04/18 12:28 Albumin 4.2 g/dL (3.9-5) 06/04/18 12:28 Albumin/Globulin Ratio 1.2 % 06/04/18 12:28 Amylase 47 units/L (27-131) 06/10/18 10:47 Lipase 51 units/L (13-60) 06/10/18 10:47 TSH 0.794 mlU/mL (0.270-4.200) 06/04/18 12:28 Urine Color Yellow (Yellow) 06/06/18 13:00 Urine Turbidity Slightly-cloudy (Clear) 06/06/18 13:00 Urine pH 5.0 (5.0-7.0) 06/06/18 13:00 Ur Specific [place] 1.018 (1.003-1.030) 06/06/18 13:00 Urine Protein <15 mg/dl mg/dL (Negative) 06/06/18 13:00 Urine Glucose (UA) Neg mg/dL (Negative) 06/06/18 13:00 Urine Ketones 20 mg/dL (Negative) 06/06/18 13:00 Urine Blood Neg (Negative) 06/06/18 13:00 Urine Nitrite Neg (Negative) 06/06/18 13:00 Urine Bilirubin Neg (Negative) 06/06/18 13:00 Urine Urobilinogen 2.0 mg/dL (<2.0) 06/06/18 13:00 Ur Leukocyte Esterase Neg (Negative) 06/06/18 13:00 Urine WBC (Auto) 3.0 /HPF (0.0-6.0) 06/06/18 13:00 Urine RBC (Auto) 1.0 /HPF (0.0-6.0) 06/06/18 13:00 U Epithel Cells (Auto) 1.0 /HPF (0-13.0) 06/06/18 13:00 Urine Bacteria (Auto) 1+ /HPF (Negative) 06/04/18 18:41 Uric Acid Crystals Few 06/06/18 13:00 Hyaline Casts 10 /LPF 06/04/18 18:41 Urine Mucus Few /HPF 06/04/18 18:41 Urine Creatinine 144.6 mg/dL (0.1-20.0) H 06/06/18 13:00 Urine Sodium 38 mmol/L 06/06/18 13:00 Urine Opiates Screen Presumptive negative 06/04/18 18:41 Urine Methadone Screen Presumptive negative 06/04/18 18:41 Ur Barbiturates Screen Presumptive negative 06/04/18 18:41 Valproic Acid 76.3 ug/mL (50-100) 06/11/18 04:43 Ur Phencyclidine Scrn Presumptive negative 06/04/18 18:41 Ur Amphetamines Screen Presumptive negative 06/04/18 18:41 U Benzodiazepines Scrn Presumptive negative 06/04/18 18:41 Urine Cocaine Screen Presumptive negative 06/04/18 18:41 U Marijuana (THC) Screen Presumptive negative 06/04/18 18:41 Drugs of Abuse Note Disclamer 06/04/18 18:41 Plasma/Serum Alcohol < 0.01 % (0-0.07) 06/04/18 12:28
[2018-06-13] MEDS: TYLENOL PO PRN (15:13)
[2018-06-14] MEDS: APRESOLINE PO SCH ×2 (05:30→14:05)
--- NOTE | 2018-06-14 09:14 | Progress Note ---
Hospitalist Physical - Constitutional Vitals: Temp Pulse Resp BP Pulse Ox 98.5 F 106 H 20 128/67 98 06/14/18 06:30 06/14/18 06:30 06/14/18 06:30 06/14/18 06:30 06/14/18 06:30 General appearance: Present: no acute distress Results - Labs CBC & Chem 7: 06/10/18 05:49 06/13/18 04:06 Labs: Laboratory Last Values WBC 7.6 K/mm3 (4.5-11.0) 06/10/18 05:49 RBC 3.63 M/mm3 (3.65-5.03) L 06/10/18 05:49 Hgb 11.0 gm/dl (11.8-15.2) L 06/10/18 05:49 Hct 33.1 % (35.5-45.6) L 06/10/18 05:49 MCV 91 fl (84-94) 06/10/18 05:49 MCH 30 pg (28-32) 06/10/18 05:49 MCHC 33 % (32-34) 06/10/18 05:49 RDW 15.2 % (13.2-15.2) 06/10/18 05:49 Plt Count 443 K/mm3 (140-440) H 06/10/18 05:49 Lymph % (Auto) 17.2 % (13.4-35.0) 06/10/18 05:49 [place] % (Auto) 9.5 % (0.0-7.3) H 06/10/18 05:49 Eos % (Auto) 2.0 % (0.0-4.3) 06/10/18 05:49 Baso % (Auto) 0.4 % (0.0-1.8) 06/10/18 05:49 Lymph # 1.3 K/mm3 (1.2-5.4) 06/10/18 05:49 [place] # 0.7 K/mm3 (0.0-0.8) 06/10/18 05:49 Eos # 0.2 K/mm3 (0.0-0.4) 06/10/18 05:49 Baso # 0.0 K/mm3 (0.0-0.1) 06/10/18 05:49 Add Manual Diff Complete 06/08/18 05:08 Seg Neutrophils % 70.9 % (40.0-70.0) H 06/10/18 05:49 Seg Neutrophils # 5.3 K/mm3 (1.8-7.7) 06/10/18 05:49 PT 14.7 Sec. (12.2-14.9) 06/04/18 12:28 INR 1.09 (0.87-1.13) 06/04/18 12:28 APTT 29.0 Sec. (24.2-36.6) 06/04/18 12:28 Sodium 141 mmol/L (137-145) 06/13/18 04:06 Potassium 3.7 mmol/L (3.6-5.0) 06/13/18 04:06 Chloride 104.4 mmol/L (98-107) 06/13/18 04:06 Carbon Dioxide 23 mmol/L (22-30) 06/13/18 04:06 Anion Gap 17 mmol/L 06/13/18 04:06 BUN 6 mg/dL (9-20) L 06/13/18 04:06 Creatinine 0.7 mg/dL (0.8-1.5) L 06/13/18 04:06 Estimated GFR > 60 ml/min 06/13/18 04:06 BUN/Creatinine Ratio 9 % 06/13/18 04:06 Glucose 121 mg/dL (75-100) H 06/13/18 04:06 POC Glucose 108 (70-105) H 06/13/18 21:52 Lactic Acid 1.40 mmol/L (0.7-2.0) 06/04/18 23:18 Calcium 9.0 mg/dL (8.4-10.2) 06/13/18 04:06 Magnesium 2.50 mg/dL (1.7-2.3) H 06/09/18 07:54 Total Bilirubin 0.40 mg/dL (0.1-1.2) 06/04/18 12:28 AST 31 units/L (5-40) 06/10/18 10:47 ALT 25 units/L (7-56) 06/10/18 10:47 Alkaline Phosphatase 27 units/L (35-129) L 06/10/18 10:47 Ammonia 70.0 umol/L (25-60) H 06/10/18 10:42 Troponin T < 0.010 ng/mL (0.00-0.029) 06/04/18 12:28 Total Protein 7.7 g/dL (6.3-8.2) 06/04/18 12:28 Albumin 4.2 g/dL (3.9-5) 06/04/18 12:28 Albumin/Globulin Ratio 1.2 % 06/04/18 12:28 Amylase 47 units/L (27-131) 06/10/18 10:47 Lipase 51 units/L (13-60) 06/10/18 10:47 TSH 0.794 mlU/mL (0.270-4.200) 06/04/18 12:28 Urine Color Yellow (Yellow) 06/06/18 13:00 Urine Turbidity Slightly-cloudy (Clear) 06/06/18 13:00 Urine pH 5.0 (5.0-7.0) 06/06/18 13:00 Ur Specific [place] 1.018 (1.003-1.030) 06/06/18 13:00 Urine Protein <15 mg/dl mg/dL (Negative) 06/06/18 13:00 Urine Glucose (UA) Neg mg/dL (Negative) 06/06/18 13:00 Urine Ketones 20 mg/dL (Negative) 06/06/18 13:00 Urine Blood Neg (Negative) 06/06/18 13:00 Urine Nitrite Neg (Negative) 06/06/18 13:00 Urine Bilirubin Neg (Negative) 06/06/18 13:00 Urine Urobilinogen 2.0 mg/dL (<2.0) 06/06/18 13:00 Ur Leukocyte Esterase Neg (Negative) 06/06/18 13:00 Urine WBC (Auto) 3.0 /HPF (0.0-6.0) 06/06/18 13:00 Urine RBC (Auto) 1.0 /HPF (0.0-6.0) 06/06/18 13:00 U Epithel Cells (Auto) 1.0 /HPF (0-13.0) 06/06/18 13:00 Urine Bacteria (Auto) 1+ /HPF (Negative) 06/04/18 18:41 Uric Acid Crystals Few 06/06/18 13:00 Hyaline Casts 10 /LPF 06/04/18 18:41 Urine Mucus Few /HPF 06/04/18 18:41 Urine Creatinine 144.6 mg/dL (0.1-20.0) H 06/06/18 13:00 Urine Sodium 38 mmol/L 06/06/18 13:00 Urine Opiates Screen Presumptive negative 06/04/18 18:41 Urine Methadone Screen Presumptive negative 06/04/18 18:41 Ur Barbiturates Screen Presumptive negative 06/04/18 18:41 Valproic Acid 76.3 ug/mL (50-100) 06/11/18 04:43 Ur Phencyclidine Scrn Presumptive negative 06/04/18 18:41 Ur Amphetamines Screen Presumptive negative 06/04/18 18:41 U Benzodiazepines Scrn Presumptive negative 06/04/18 18:41 Urine Cocaine Screen Presumptive negative 06/04/18 18:41 U Marijuana (THC) Screen Presumptive negative 06/04/18 18:41 Drugs of Abuse Note Disclamer 06/04/18 18:41 Plasma/Serum Alcohol < 0.01 % (0-0.07) 06/04/18 12:28
[2018-06-14] MEDS: ZOLOFT PO SCH (10:07)
[2018-06-14] MEDS: SODIUM CHLORIDE FLUSH SYRINGE 10 ML IV SCH (10:08)
[2018-06-14] MEDS: ZESTRIL PO SCH (10:08)
[2018-06-14] MEDS: COLACE PO SCH (10:08)
[2018-06-14] MEDS: NORVASC PO SCH (10:08)
[2018-06-14] MEDS: HALFPRIN EC PO SCH (10:08)
[2018-06-14] MEDS: TRICOR PO SCH (10:08)
[2018-06-14] MEDS: POTASSIUM CHLORIDE PO SCH (10:08)
[2018-06-14 13:24] VITALS: BP 117/87
--- NOTE | 2018-06-14 15:09 | Event Note ---
Date: 06/14/18 I have seen and examined patient today. He is medically stable for discharge. To go to facility today.
== END 2018-06-14 17:03 | disposition home or self-care (01) | DRG 871 ==
LOC: ED 11:38 → 3A 17:43
PROVIDERS: ADMIT Internal Medicine; ATTEND Internal Medicine
PROC: 4A00X4Z Measurement of Central Nervous Electrical Activity, External Approach (ICD-10-PCS; principal; 2018-06-06)
DX: A41.9 Sepsis, unspecified organism (principal); G92 Toxic encephalopathy; E87.2 Acidosis; E87.0 Hyperosmolality and hypernatremia; G81.91 Hemiplegia, unspecified affecting right dominant side; I10 Essential (primary) hypertension; F31.9 Bipolar disorder, unspecified; F25.9 Schizoaffective disorder, unspecified; E78.5 Hyperlipidemia, unspecified; Z83.3 Family history of diabetes mellitus; Z82.49 Family history of ischemic heart disease and other diseases of the circulatory system; Z88.8 Allergy status to other drugs, medicaments and biological substances; Z79.2 Long term (current) use of antibiotics; Z79.82 Long term (current) use of aspirin; Z79.899 Other long term (current) drug therapy; E86.0 Dehydration; R47.02 Dysphasia; E11.9 Type 2 diabetes mellitus without complications
CPT/HCPCS: 36415; 70450; 70551; 71045; 80048; 80053; 80164; 80307; 80320; 81001; 82140; 82150; 82570; 82962; 83690; 83735; 84075; 84300; 84443; 84450; 84460; 84484; 85025; 85610; 85730; 87040; 87116; 93005; 93010; 95819; 96365; 96372; 96375; 99285; G0480; G8978-GP; G8979-GP; J0360; J1200; J1630; J1631; J2060; J2543; J3230; J3370; J3475; J3480; J3486; J7030; J7040; J7070; Q0161